=== PATIENT | male | born 1960 | race Caucasian/White ===

== ENCOUNTER 2017-12-08 17:04 | Observation (INO) | payer BC, SELFPAY ==
[2017-12-08 17:05] VITALS: BP 148/89; PULSE 98; RESP 18; TEMP 37.1; O2SAT 98; BMI 30.4
--- NOTE | 2017-12-08 17:17 | CT_ITS ---
STUDY: CT ABDOMEN AND PELVIS WITH CONTRAST REASON FOR EXAM: Male, 57 years old. Right-sided abdominal pain, colonoscopy 1 day ago RADIATION DOSAGE (If Supplied By Facility): CTDIvol = ( 13.93 ) mGy, DLP = ( 900.59 ) mGycm TECHNIQUE: Transaxial images were obtained from the dome of the diaphragm to the symphysis pubis without oral contrast. 100ML ml of Isovue 300 contrast was administered. Sagittal and coronal images were reconstructed. Individualized dose optimization techniques were used for this CT. COMPARISON: None. FINDINGS: The visualized lung bases are unremarkable. The visualized portions of the heart are within normal limits. Normal liver. Normal gallbladder and extrahepatic biliary system. Normal spleen. Normal pancreas. Normal bilateral adrenal glands. Normal right kidney. Normal left kidney. Normal visualized stomach. Normal small intestine. There is wall thickening of the cecal tip. There is a linear dense radiopaque foreign body of the cecum measuring 1.8 cm in length. There is mild colonic diverticulosis. There is no evidence of associated diverticulitis. The appendix is visualized and appears normal. Normal abdominal aorta. Normal inferior vena cava. Normal retroperitoneum. Normal urinary bladder. The prostate is mildly enlarged. There is a central prostatic calcification. There is a small umbilical hernia containing fat. There are diffuse degenerative changes of the thoracolumbar spine. There is moderate old compression deformity of the superior endplate of L3. CT/Abdomen/Pelvis WITH Contrast IMPRESSION: 1. There is wall thickening of the cecal tip. There is a linear dense intraluminal radiopaque foreign body of the cecum measuring approximately 1.8 cm in length. This structure is of unknown etiology or significance. 2. Mild colonic diverticulosis with no evidence of associated diverticulitis. 3. Enlarged prostate. 4. Small fat-containing umbilical hernia. 5. Diffuse degenerative changes of the thoracolumbar spine. Moderate old compression deformity of the superior endplate of L3. 6. There is no evidence of free intra-abdominal or intrapelvic air or fluid. Electronically Signed: Justin Chairez MD at 20:01 EDT , Service support ,
--- NOTE | 2017-12-08 17:27 | ED.DCSUM_ITS ---
- ER Visit Summary Date of Service: 12/08/17 Chief Complaint: Abdominal pain History of Present Illness: The patient is a 57 M who presents with right lower quadrant abdominal pain. Patient states that he had a screening colonoscopy yesterday morning with Dr. Lane. He states that there is a polyp on the right side of his colon that was clamped. He states he had a little bit of discomfort after the procedure. Pain gradually came on his described as a sharp cramping sensation. Last night was worse he spoke with Dr. Lane. It is progressively worsened today. He notes a normal bowel movement yesterday. He notes some anorexia today. He notes a subjective fever today. States it is worse with movement best with laying down. Physical Examination: Afebrile vital signs are stable Gen: Well-nourished well-developed Head: Normocephalic atraumatic Eyes: Perrl EOMI ENT: TMs clear no rhinorrhea moist mucous membranes Neck: Supple no lymphadenopathy no JVD nontender CVS: Regular rate rhythm no murmurs normal S1-S2 Respiratory: No distress clear to auscultation bilaterally chest nontender Abdomen: Soft patient has tenderness and guarding in the right lower quadrant without rebound ormal bowel sounds no masses Back: Nontender Extremity: Nontender no edema Skin: Normal color no rash Neuro: alert orientated ?3 CN II-XII intact normal strength sensation reflexes gait cerebellar Psych: Normal affect normal mood Test Results: White count is normal. CT abdomen pelvis demonstrates some thickening the right lower colon. There is a recent clip. Emergency Department Course and Treatment: Patient received morphine IV fluids and Zosyn. Spoke with Dr. Lane who is come to the emergency department evaluate the patient. He like to have the patient admitted for continued pain control. Impression: 1. Acute abdominal pain 2. Status post polypectomy This note was generated with [employer] dictation software. It may contain incorrect words, spelling, and punctuation that were not noted in review of the chart prior to signing ED Disposition - Plan for ED Patient: Disposition: [facility] Chief Complaint: Abd Pain
[2017-12-08 17:48] LABS: Absolute Lymphocyte Count 1.52 X10^3/ul (0.83-4.51); Absolute Neutrophil Count 6.4 X10^3/uL (2.0-7.7); Basophil# 0.01 X10^3/uL; Basophil% 0.1 % (0-1); Eosinophil# 0.05 X10^3/uL; Eosinophils% 0.6 % (0-5); Hematocrit 40.4 % (40-54); Hemoglobin 13.6 g/dl (13.0-16.5); Lymphocyte # 1.52 X10^3/ul (4.0); Lymphocyte % 17.4 % (19-41); Mean Corp Hgb Conc 33.7 g/gl (32-36); Mean Corpuscular Hgb 31.4 pg (27.0-32.0); Mean Corpuscular Volume 93.3 fL (80-94); Mean Platelet Vol. 9.6 fl (6.2-12.0); Monocyte# 0.76 X10^3/uL; Monocyte% 8.7 % (0-10); Neutrophil # 6.39 X10^3/uL (2.7-7.7); Neutrophil % 73.1 % (47-70); Platelet Count 160 K/mm3 (150-450); RBC Distribution Width CV 12.7 % (11.6-14.6); RBC Distribution Width SD 43.6 fl (35.1-43.9); Red Blood Count 4.33 M/mm3 (4.6-6.2); White Blood Count 8.7 K/mm3 (4.4-11.0)
[2017-12-08 17:52] LABS: POSITIVE COUNT NO; POSITIVE DIFFERENTIAL NO; POSITIVE MORPHOLOGY NO
[2017-12-08 17:55] LABS: AST(SGOT) 28 U/L (15-37); Alanine Aminotransfer ALT/SGPT 35 U/L (16-61); Albumin, Serum 3.7 g/dL (3.2-5.0); Alkaline Phosphatase 61 U/L (45-117); Anion Gap 8 (5-15); BUN 12 mg/dL (7-18); BUN/Creat Ratio 12.1 RATIO (10-20); Chloride 106 mmol/L (98-107); EST Glomerular Filtration Rate 82 mL/min (>60); Est Glom Filt Rate - Afr Amer 100 mL/min (>60); Estimated Creatinine Clearance 78.85 ml/min; Globulin 3.7 g/dL (2.2-4.2); Glucose 86 mg/dL (74-106); Potassium 3.8 mmol/L (3.5-5.1); Protein, Total 7.4 g/dL (6.4-8.2); Sodium Level 140 mmol/L (136-145)
--- NOTE | 2017-12-08 18:07 | ED.RN ---
DR EDWARDS NOTIFIED PT REQUESTING SOMETHING FOR PAIN
--- NOTE | 2017-12-08 19:29 | HP.PCM_ITS ---
History of Present Illness Date of Admission: 12/08/17 The patient is a 57 year old M POD# 1 s/p colonoscopy with cecal polypectomy with deep polypectomy with hemolock clip placed. The patient noted pain in the RLQ today. the patient notedno fever, shoulder pain or diffuse pain. The pain persisted and he presented to the [facility] ER. WBC and Hgb were normal. CT scan demonstrated no free air. with persistent pain, the patient was admitted for pain control, IV antibiotics and to assure the doesn't have a delayed signs of perforation Past Medical History Allergies No Known Allergies Allergy (Verified 12/08/17 17:07) Home Medications: Ambulatory Orders Medication Instructions Recorded Acetaminophen [Tylenol Tablet] 650 mg PO Q4H PRN PRN tablet 12/09/17 Oxycodone [Oxyir] 5 mg PO Q4H PRN PRN 7 Days #12 tab 12/09/17 Surgical History: no surgical history Smoking Status: Never smoker Review of Systems Constitutional: Denies: Chills, Fever, Weight Change HEENT: Denies: Head Aches, Sinus Congestion, Sinus Drainage Cardiovascular: Denies: Chest Pain, Palpitations Respiratory: Denies: Cough, Shortness of breath at rest, Sputum production Gastrointestinal: Reports: Abdominal Pain. Denies: Nausea, Vomiting Genitourinary: Denies: Dysuria Musculoskeletal: Denies: Joint Pain, Joint Tenderness Skin: Denies: Rash, Wounds Neurological: Denies: Numbness, Tingling, Focal weakness Psychiatric: Denies: Anxiety, Depression, Homicidal Ideations, Suicidal Ideations Hematologic/ Lymphatic: Denies: Easy Bruising, Easy Bleeding VTE Information - Inpt Only VTE Present on Admission: No VTE Pharm Prophylaxis ordered?: No - Physical Exam General: Alert, Oriented x3, Cooperative Lungs: Clear to auscultation, Normal air movement Cardiovascular: Regular rate, No murmurs Abdomen: Bowel Sounds Present, Soft, Tender - RLQ, no diffuse peritoneal signs Vital Signs Temp Pulse Resp BP Pulse Ox 98.7 F 98 18 148/89 H 98 12/08/17 17:05 12/08/17 17:05 12/08/17 17:05 12/08/17 17:05 12/08/17 17:05 Oxygen Delivery Method Room Air Weight: 90.9 kg Body Mass Index (BMI) 30.4 Laboratory Tests Past 24 Hrs 12/08/17 12/08/17 17:30 17:30 WBC 8.7 RBC 4.33 L Hgb 13.6 Hct 40.4 MCV 93.3 MCH 31.4 MCHC 33.7 RDW 12.7 RDW Differential 43.6 Plt Count 160 MPV 9.6 Immature Gran % (Auto) 0.100 Neut % (Auto) 73.1 H Lymph % (Auto) 17.4 L [place] % (Auto) 8.7 Eos % (Auto) 0.6 Baso % (Auto) 0.1 Absolute Neuts (auto) 6.4 Absolute Lymphs (auto) 1.52 Total Counted Not Reportable Sodium 140 Potassium 3.8 Chloride 106 Carbon Dioxide 26.0 Anion Gap 8 BUN 12 Creatinine 1.00 Estim Creat Clear Calc 78.85 Est GFR (MDRD) Af Amer 100 Est GFR (MDRD) Non-Af 82 BUN/Creatinine Ratio 12.1 Glucose 86 Calcium 8.0 L Total Bilirubin 1.00 AST 28 ALT 35 Alkaline Phosphatase 61 Total Protein 7.4 Albumin 3.7 Globulin 3.7 Albumin/Globulin Ratio 1.0 Assessment/Plan post polypectomy pain I discussed with the patient the finding of a CT scan. His laboratory results, which demonstrate no perforation. He does have swelling and inflammation at the base of the cecum on CT scan. The clip placement is in good location. I discussed with the patient that while unusual post polypectomy pain. This is not uncommon after a deeper polypectomy. I discussed the fact that clip placement should prevent perforation and that if the patient has bud perforation. A clip can be used to close that hole. I will admit for IV antibiotics and IV fluids. While the patient is requiring parenteral pain medication will be maintained nothing by mouth status. We will recheck a complete blood count in the morning. I anticipate his pain will improve. If so, we will restart clear liquids and if he is tolerating oral pain medicine.
[2017-12-08] MEDS: Morphine 4 MG/ML Syringe IV (19:41)
[2017-12-08] MEDS: 0.9% Normal Saline 1,000 ML 999 ML IV (19:41)
[2017-12-08] MEDS: Ondansetron 4 MG/2 ML Vial IV (19:41)
[2017-12-08 19:50] VITALS: BP 131/75; PULSE 93; RESP 18; RESP 20; TEMP 37.2; O2SAT 97
[2017-12-08 20:08] VITALS: BMI 29.7
[2017-12-08 20:14] VITALS: BMI 29.8
[2017-12-08 20:30] VITALS: BP 126/66; PULSE 92; RESP 16; TEMP 37.3; O2SAT 98
[2017-12-08] MEDS: Acetaminophen 325 MG Tablet 650 MG PO (22:01)
[2017-12-08] MEDS: HYDROmorphone 1 MG/ML Syringe IV (22:01)
[2017-12-08 22:40] VITALS: RESP 18
[2017-12-09] MEDS: HYDROmorphone 1 MG/ML Syringe IV ×3 (00:16→07:31)
[2017-12-09] MEDS: 0.9% NaCl Peripheral Flush Adult/Peds IV ×3 (00:17→07:31)
[2017-12-09 02:30] VITALS: BP 113/70; PULSE 77; RESP 18; TEMP 36.7; O2SAT 94
[2017-12-09] MEDS: Lactated Ringers 1,000 ML 100 ML IV (02:38)
[2017-12-09 05:58] LABS: Absolute Lymphocyte Count 1.44 X10^3/ul (0.83-4.51); Absolute Neutrophil Count 5.1 X10^3/uL (2.0-7.7); Basophil# 0.01 X10^3/uL; Basophil% 0.1 % (0-1); Eosinophil# 0.13 X10^3/uL; Eosinophils% 1.8 % (0-5); Hematocrit 38.3 % (40-54); Lymphocyte # 1.44 X10^3/ul (4.0); Lymphocyte % 19.8 % (19-41); Mean Corp Hgb Conc 33.9 g/gl (32-36); Mean Corpuscular Volume 94.3 fL (80-94); Mean Platelet Vol. 9.8 fl (6.2-12.0); Monocyte% 8.3 % (0-10); Neutrophil # 5.07 X10^3/uL (2.7-7.7); Neutrophil % 69.9 % (47-70); Platelet Count 136 K/mm3 (150-450); RBC Distribution Width CV 12.5 % (11.6-14.6); RBC Distribution Width SD 42.7 fl (35.1-43.9); Red Blood Count 4.06 M/mm3 (4.6-6.2); White Blood Count 7.3 K/mm3 (4.4-11.0)
[2017-12-09 06:02] LABS: POSITIVE COUNT NO; POSITIVE DIFFERENTIAL NO; POSITIVE MORPHOLOGY NO
[2017-12-09 08:18] VITALS: BP 119/71; PULSE 82; RESP 18; TEMP 36.5; O2SAT 95
[2017-12-09 08:19] LABS: Anion Gap 5 (5-15); BUN 12 mg/dL (7-18); BUN/Creat Ratio 11.8 RATIO (10-20); Chloride 106 mmol/L (98-107); Creatinine, Serum 1.02 mg/dL (0.70-1.30); EST Glomerular Filtration Rate 80 mL/min (>60); Est Glom Filt Rate - Afr Amer 97 mL/min (>60); Glucose 74 mg/dL (74-106); Potassium 4.2 mmol/L (3.5-5.1); Sodium Level 139 mmol/L (136-145)
[2017-12-09] MEDS: oxyCODONE 5 MG Tablet PO ×2 (10:13→14:35)
--- NOTE | 2017-12-09 10:13 | PCM.PN.SRG ---
Subjective: less pain this morning - Physical Exam General: Alert, Oriented x3, Cooperative Lungs: Clear to auscultation, Normal air movement Cardiovascular: Regular rate, No murmurs Abdomen: Bowel Sounds Present, Soft, Tender - much improved and minimally tender in the right lower quadrant, no peritoneal signs. Vital Signs Temp Pulse Resp BP Pulse Ox 97.7 F L 82 18 119/71 95 12/09/17 08:18 12/09/17 08:18 12/09/17 08:18 12/09/17 08:18 12/09/17 08:18 Oxygen Delivery Method Room Air Weight: 88.9 kg Body Mass Index (BMI) 29.7 Intake and Output for Last 24 Hours 12/07/17 12/08/17 12/09/17 23:59 23:59 23:59 Intake Total 1648 / 1648 Balance 1648 / 1648 Laboratory Tests Past 24 Hrs 12/09/17 12/09/17 05:31 05:31 WBC 7.3 RBC 4.06 L Hgb 13.0 Hct 38.3 L MCV 94.3 H MCH 32.0 MCHC 33.9 RDW 12.5 RDW Differential 42.7 Plt Count 136 L MPV 9.8 Immature Gran % (Auto) 0.100 Neut % (Auto) 69.9 Lymph % (Auto) 19.8 Mcintosh % (Auto) 8.3 Eos % (Auto) 1.8 Baso % (Auto) 0.1 Absolute Neuts (auto) 5.1 Absolute Lymphs (auto) 1.44 Total Counted Not Reportable Sodium 139 Potassium 4.2 Chloride 106 Carbon Dioxide 28.0 Anion Gap 5 BUN 12 Creatinine 1.02 Estim Creat Clear Calc 77.30 Est GFR (MDRD) Af Amer 97 Est GFR (MDRD) Non-Af 80 BUN/Creatinine Ratio 11.8 Glucose 74 Calcium 8.0 L Medical Necessity - Tobacco Use Smoking Status: Never smoker Assessment/Plan post polypectomy pain I discussed with the patient the finding of a CT scan. formal CT scan reading was consistent with my impression from last night. His laboratory results, which demonstrate no perforation. He does have swelling and inflammation at the base of the cecum on CT scan. The clip placement is in good location. I discussed with the patient that while unusual post polypectomy pain. This is not uncommon after a deeper polypectomy. I discussed the fact that clip placement should prevent perforation and that if the patient has bud perforation. A clip can be used to close that hole. WBC count today remains normal. Will continue IV antibiotics and IV fluids. if the patient's pain is improved to the point that oral analgesics are adequate for his pain, then we will restart clear liquids. he is tolerating clear liquids, then he can be discharged home later today on clear liquids for the next 4 days. He is to follow-up in my office .
[2017-12-09] MEDS: Piperacil/Tazobactam 3.375 GM/50 ML ML IV (10:14)
--- NOTE | 2017-12-09 10:15 | PCM.DC ---
You will use the following diet at home:: Clear liquid - for 5 days Call your doctor if you observe: Fever of 101 or Higher Allergies/Adverse Reactions: Allergies No Known Allergies Allergy (Verified 12/08/17 17:07) Medications to take at Discharge Acetaminophen [Tylenol Tablet] 650 mg PO Q4H PRN PRN tablet 12/09/17 Oxycodone [Oxyir] 5 mg PO Q4H PRN PRN 7 Days #12 tab 12/09/17 The following prescriptions were given: Oxycodone [Oxyir] 5 mg PO Q4H PRN PRN 7 Days #12 tab PRN Reason: Severe Pain (-06/19) Primary Care Physician: Adrian Valencia MD [Primary Care Provider] - Please Follow Up With: Pilo Melgoza MD When:
--- NOTE | 2017-12-09 10:19 | PCM.DC.SUM ---
Discharge Date and Diagnosis Date of Admission: 12/08/17 Date of Discharge: 12/09/17 Hospital Course and Treatment Summary of Care Provided: The patient is a 57 year old M with post polypectomy pain I discussed with the patient the finding of a CT scan of edema at the base of the cecum and a clip in place, but no signs of perforation or free air. formal CT scan reading was consistent with my impression from last night. His laboratory results, which demonstrate no perforation. He does have swelling and inflammation at the base of the cecum on CT scan. The clip placement is in good location. I discussed with the patient that while unusual post polypectomy pain. This is not uncommon after a deeper polypectomy. I discussed the fact that clip placement should prevent perforation and that if the patient has bud perforation. A clip can be used to close that hole. WBC count today remains normal. Will continue IV antibiotics and IV fluids. if the patient's pain is improved to the point that oral analgesics are adequate for his pain, then we will restart clear liquids. he is tolerating clear liquids, then he can be discharged home later today on clear liquids for the next 4 days. He is to follow-up in my office . Discharge Diet: - - clear liquids Call your doctor if you observe: Fever of 101 or Higher Home Medications: Medications to take at Discharge Acetaminophen [Tylenol Tablet] 650 mg PO Q4H PRN PRN tablet 12/09/17 Oxycodone [Oxyir] 5 mg PO Q4H PRN PRN 7 Days #12 tab 12/09/17 Following Prescrptions Were Given to Patient: Oxycodone [Oxyir] 5 mg PO Q4H PRN PRN 7 Days #12 tab PRN Reason: Severe Pain (6-06/19) Primary Care Physician: Adrian Valencia MD [Primary Care Provider] - Please Follow Up With: Pilo Melgoza MD When: Medical Necessity - Tobacco Use Smoking Status: Never smoker Meaningful Use Info Meaningful Use Diagnoses (Choose all that apply): None applicable
[2017-12-09 14:32] VITALS: BP 126/72; PULSE 81; RESP 18; TEMP 36.8; O2SAT 98
[2017-12-09 14:43] VITALS: BP 126/72; PULSE 81; RESP 18; TEMP 36.8; O2SAT 98
== END 2017-12-09 14:42 | disposition home or self-care (01) ==
LOC: ED 18:09 → MS2 19:47
PROVIDERS: Admitting Provider Surgery; Emergency Provider Emergency Medicine; Family Provider Family Medicine; PCP Family Medicine; Visit Provider Surgery
DX: G89.18 Other acute postprocedural pain (principal); R10.31 Right lower quadrant pain; R60.9 Edema, unspecified
CPT/HCPCS: 36415; 74177; 80048; 80053; 85025; 96361; 96365; 96375; 96376; 99218; 99285; J7120; Q9967; A4216; G0378; J2405

== ENCOUNTER 2019-05-30 10:26 | Emergency (ER) | payer BC, SELFPAY ==
[2019-05-30 10:27] VITALS: BP 117/65; PULSE 128; RESP 18; TEMP 36.5; O2SAT 98; BMI 25.8
--- NOTE | 2019-05-30 11:03 | ED.DCSUM_ITS ---
History of Present Illness Chief Complaint: Nausea/Vomiting Informant: Patient Onset: Days - 2 Narrative: Nausea vomiting diarrhea past 2 days. Started with nausea now dry heaving. No hematemesis. Last episodes 9 PM last night. Patient bladder cancer diagnosed in the summer status post 4 treatments are every 2 weeks last time was 4 days ago. Is followed by [place] [facility]. No fever, no abdominal pain. No recent antibiotics. Occasional lightheaded symptoms with activity. No chest pains, no shortness of breath, no cough. Denies any fevers. No chills or sweats. Prior similar symptoms: No Past Medical History - Allergies and Home Meds Allergies/Adverse Reactions: Allergies No Known Allergies Allergy (Verified 12/08/17 17:07) Primary Care Physician: Adrian Valencia MD [Primary Care Provider] - Surgical History: no surgical history Smoking Status: Never smoker Review of Systems General: Denies: Chills, Fever, Sweats Eyes: Denies: Visual changes - bilaterally, Diplopia ENT: Denies: Rhinorrhea, Sore throat Cardiovascular: Denies: Chest pain, Palpitations Respiratory: Denies: Dyspnea, Cough, Dyspnea on exertion Gastrointestinal: Reports: Nausea, Vomiting, Diarrhea. Denies: Abdominal pain, Melena, Hematochezia Genitourinary: Denies: Dysuria, Hematuria, Frequency Musculoskeletal: Denies: Back pain, Extremity Pain Skin: Denies: Rash, Wounds Neurological: Denies: Headache, Weakness, Numbness Physical Exam Vital Signs/Narrative: Vital Signs Temp Pulse Resp BP Pulse Ox 05/30/19 10:27 97.7 F L 128 H 18 117/65 98 Inital Vital Signs reviewed: Yes General: Well nourished, Well developed, No Acute Distress Head: Normocephalic, Atraumatic Eyes: Perrl, EOMI ENT: No rhinorrhea, Dry mucous membranes Neck: Supple, Nontender Cardiovascular: Regular rate, Regular rhythm, No murmurs, Tachycardia Respiratory: No distress, CTA bilaterally, Chest nontender Abdomen: Soft, Nontender, Nondistended, Normal bowel sounds Back: Nontender, Normal Inspection Extremities: Nontender, No edema Skin: Normal color, No rash Neurological: Alert, Oriented x3, Cranial nerves II-XII grossly intact, Normal Strength, Normal Sensation Psychological: Normal affect, Normal Mood Diagnostic/Tx/Re-eval Chest X-Ray - ED: 2 View, Read by ED Physician, No Infiltrates Clinical Impression(s) from Imaging Studies Chest X-Ray 05/30/19 13:08 IMPRESSION: Hyperinflation. No acute infiltrate is seen. Electronically Signed: Everette Rodriguez, at 14:02 EDT , Service support , Abnormal Lab Results 05/30/19 05/30/19 05/30/19 11:30 11:30 13:20 WBC 24.4 H RBC 3.24 L Hgb 10.4 L Hct 29.5 L MCV 91.0 MCH 32.1 H MCHC 35.3 RDW Std Deviation 45.0 H RDW Coeff of [place] 13.5 Plt Count 107 L MPV 9.9 Neut % (Auto) Not Reportable Absolute Neuts (auto) 22.1 H Absolute Lymphs (auto) 1.68 Total Counted 100 Neutrophils % (Manual) 88 H Band Neutrophils % 4 Lymphocytes % (Manual) 7 L Monocytes % (Manual) 1 Diff Path Review May foll Platelet Estimate MOD DEC RBC Morphology NORM C+C Sodium 133 L Potassium 3.6 Chloride 99 Carbon Dioxide 27.0 Anion Gap 7 BUN 31 H Creatinine 1.58 H Estim Creat Clear Calc 50.96 Est GFR (MDRD) Af Amer 58 L Est GFR (MDRD) Non-Af 48 L BUN/Creatinine Ratio 19.6 Glucose 109 H Calcium 8.8 Urine Color Yellow Urine Clarity Clear Urine pH 5.0 Ur Specific [place] 1.015 Urine Protein 30 H Urine Glucose (UA) Normal Urine Ketones 5 H Urine Occult Blood 25 H Urine Nitrite Negative Urine Bilirubin Negative Urine Urobilinogen Normal Ur Leukocyte Esterase 500 H Urine RBC 0-5 SEEN Urine WBC 10-25 SEEN Ur Squamous Epith Cells 0-5 SEEN Urine Bacteria 0 SEEN Urine Mucus 0 SEEN Patient tachycardic on arrival, however is nontoxic afebrile. Vomiting diarrhea and dry mucosal membranes concerns of dehydration. No cardiac history is given 2 L IV fluids with improving symptoms. Check labs and white count 24 however he is also status post Neulasta. He is not neutropenic. Slight ROMAN creatinine 1.58 he is status post 2 L of fluid. No vomiting or diarrhea in the ED. Due to the white count I also added chest x-ray which was negative. urine due to his bladder cancer notes leukocytes and white blood cells. Culture sent for the urine. He will be started on Keflex. He is feeling much better heart rate is 84 on reevaluation. Strict signs and symptoms discussed to return otherwise he will follow-up as an outpatient. Patient understands and agrees with plan. - Medical Decision Making Patient with no vomiting or diarrhea in the ED, therefore no additional studies for stools were sent. Patient meets sirs criteria, however he is not clinically septic. Patient does have Zofran at home. ED Disposition - Plan for ED Patient: Disposition: Home or Assisted Living Diagnosis: Nausea vomiting and diarrhea, Dehydration, Renal insufficiency, mild, UTI (urinary tract infection) Instructions: DIET, Vomiting or Diarrhea [6yr-Adult], Understanding Urinary Tract Infections (UTIs) Prescriptions: Cephalexin [Keflex] 500 mg PO Q12 #14 capsule Referrals: Adrian Valencia MD [Primary Care Provider] - Additional Instructions: Follow-up with your oncologist, continue oral fluids. Take antibiotics as prescribed. Return if any worsening symptoms.
[2019-05-30] MEDS: 0.9% Normal Saline 1,000 ML 1000 ML IV (11:33)
[2019-05-30] MEDS: Ondansetron 4 MG/2 ML Vial IV (11:33)
[2019-05-30 11:52] LABS: Anion Gap 7 (5-15); BUN 31 mg/dL (7-18); BUN/Creat Ratio 19.6 RATIO (10-20); Calcium,Total 8.8 mg/dL (8.5-10.1); Chloride 99 mmol/L (98-107); Creatinine, Serum 1.58 mg/dL (0.70-1.30); EST Glomerular Filtration Rate 48 mL/min (>60); Est Glom Filt Rate - Afr Amer 58 mL/min (>60); Estimated Creatinine Clearance 50.96 ml/min; Glucose 109 mg/dL (74-106); Hematocrit 29.5 % (40-54); Hemoglobin 10.4 g/dL (13.0-16.5); Mean Corp Hgb Conc 35.3 g/dL (32-36); Mean Corpuscular Hgb 32.1 pg (27.0-32.0); Mean Platelet Vol. 9.9 fl (6.2-12.0); POSITIVE COUNT YES; POSITIVE MORPHOLOGY YES; Platelet Count 107 K/mm3 (150-450); Potassium 3.6 mmol/L (3.5-5.1); RBC Distribution Width CV 13.5 % (11.6-14.6); Red Blood Count 3.24 M/mm3 (4.6-6.2); Sodium Level 133 mmol/L (136-145); White Blood Count 24.4 K/mm3 (4.4-11.0)
[2019-05-30 11:54] LABS: Differential Indicated MANUAL DIFF
[2019-05-30 12:39] LABS: Lymphocyte 7 % (19-41); Monocyte 1 % (0-10); Neutrophil-Band 4 % (0-5); Neutrophil-Segmented 88 % (47-70); Total Cells Counted 100 (MANUAL DIFF)
[2019-05-30 12:45] LABS: Absolute Lymphocyte Count 1.68 X10^3/uL (0.83-4.51); Absolute Neutrophil Count 22.1 X10^3/uL (2.0-7.7); Lymphocyte # 1.68 X10^3/ul (4.0); Neutrophil # 22.08 X10^3/uL (2.7-7.7)
[2019-05-30 12:46] LABS: Platelet Estimate MOD DEC (ADEQ); Red Cell Morphology NORM C+C NORMAL (NORM C&C)
--- NOTE | 2019-05-30 13:08 | RAD_ITS ---
STUDY: X-RAY CHEST REASON FOR EXAM: Male, 58 years old. Leukocytosis. Dehydration. TECHNIQUE: PA and lateral views of the chest. COMPARISON: None. FINDINGS: A right-sided PICC line catheter is in the proximal superior vena cava. Hyperinflation. Scattered calcified granulomas. There is no demonstrated pleural abnormality. Normal size heart. Normal mediastinum and steve. Normal visualized pulmonary arteries. Normal visualized aortic arch and descending thoracic aorta. There are degenerative changes of the visualized thoracic spine. Normal visualized ribs, clavicles, and shoulders. There is no demonstrated abnormality of the visualized soft tissue structures of the upper abdomen. RAD/Chest PA and Lateral IMPRESSION: Hyperinflation. No acute infiltrate is seen. Electronically Signed: Everette Rodriguez, at 14:02 EDT , Service support ,
[2019-05-30 13:29] LABS: Bacteria 0 SEEN /hpf (None Seen); Mucous, Urine 0 SEEN /hpf (<or=2+)
[2019-05-30 13:41] LABS: Color, Urine Yellow (Yellow); Glucose, Dipstick Normal (Normal); Ketone-Dipstick 5 mg/dl (Negative); Leukocyte Esterase-Dipstick 500 /ul (Negative); Nitrite-Dipstick Negative (Negative); Occult Blood-Urine 25 /ul (Negative); Protein-Dipstick 30 mg/dl (Negative); Specific Gravity, Urine 1.015 (1.002-1.030); Urine Bilirubin Dipstick Negative (Negative); Urine Clarity Clear (Clear); Urine Urobilinogen Normal (Normal)
[2019-05-30 13:45] LABS: Squamous Epithelial Cells - UA 0-5 SEEN /hpf (0-5)
[2019-05-30 13:48] LABS: Red Blood Cells-Urine 0-5 SEEN /hpf (0-5)
[2019-05-30 13:50] LABS: White Blood Cells 10-25 SEEN /hpf (0-5)
[2019-05-30] MEDS: Cephalexin 250 MG Capsule 500 MG PO (14:40)
[2019-05-30 14:48] VITALS: BP 130/67; PULSE 71; RESP 15; O2SAT 98
[2019-06-02 13:36] LABS: Pathologist Review Reviewed
== END 2019-05-30 14:49 | disposition home or self-care (01) ==
PROVIDERS: Emergency Provider Emergency Medicine; Family Provider Family Medicine; PCP Family Medicine
DX: R11.2 Nausea with vomiting, unspecified (principal); R19.7 Diarrhea, unspecified; E86.0 Dehydration; N28.9 Disorder of kidney and ureter, unspecified; N39.0 Urinary tract infection, site not specified; C67.9 Malignant neoplasm of bladder, unspecified
CPT/HCPCS: 71046; 80048; 81001; 85025; 87086; 96361; 96374; 99283; J7030; J2405

== ENCOUNTER 2020-06-29 10:21 | Emergency (ER) | payer BC, SELFPAY ==
[2020-06-29 10:23] VITALS: BP 151/89; PULSE 90; RESP 18; TEMP 36.4; O2SAT 99; BMI 30.4
[2020-06-29 11:03] LABS: Absolute Lymphocyte Count 0.29 X10^3/uL (0.83-4.51); Absolute Neutrophil Count 5.1 X10^3/uL (2.0-7.7); Eosinophils% 3.5 % (0-5); Hematocrit 42.1 % (40-54); Hemoglobin 14.3 g/dL (13.0-16.5); Lymphocyte # 0.29 X10^3/ul (4.0); Mean Corpuscular Volume 94.2 fL (80-94); Mean Platelet Vol. 9.5 fl (6.2-12.0); Monocyte# 0.21 X10^3/uL; Monocyte% 3.6 % (0-10); NRBC Flagged by Analyzer 0 % (0-5); Neutrophil # 5.06 X10^3/uL (2.7-7.7); Neutrophil % 87.7 % (47-70); POSITIVE DIFFERENTIAL YES; POSITIVE MORPHOLOGY YES; Platelet Count 145 K/mm3 (150-450); RBC Distribution Width CV 12.3 % (11.6-14.6); RBC Distribution Width SD 42.7 fl (35.1-43.9); Red Blood Count 4.47 M/mm3 (4.6-6.2); White Blood Count 5.8 K/mm3 (4.4-11.0)
[2020-06-29 11:04] LABS: Differential Indicated SCAN CRITERIA MET
[2020-06-29 11:15] LABS: Anion Gap 7 (5-15); BUN 21 mg/dL (7-18); BUN/Creat Ratio 14.5 RATIO (10-20); Calcium,Total 9.2 mg/dL (8.5-10.1); Chloride 105 mmol/L (98-107); Creatinine, Serum 1.45 mg/dL (0.70-1.30); EST Glomerular Filtration Rate 53 mL/min (>60); Est Glom Filt Rate - Afr Amer 64 mL/min (>60); Estimated Creatinine Clearance 53.07 ml/min; Glucose 140 mg/dL (74-106); Potassium 4.2 mmol/L (3.5-5.1); Sodium Level 139 mmol/L (136-145)
--- NOTE | 2020-06-29 11:37 | ED.DCSUM_ITS ---
History of Present Illness <Ej Millan - Last Filed: 06/29/20 18:04> Informant: Patient Narrative: Patient is a 59-year-old previously healthy male who presents to the emergency department for epigastric abdominal pain. He has been having associated nausea and vomiting with this. Denies any change in bowel habits. He has been having some sweats/chills but no fevers. The pain has occurred once a week over the past 4 weeks. It typically happens at nighttime. This episode has been going on since midnight last night. He has not tried taking anything for it. He currently describes the pain as a 10 out of 10 burning sensation. He does not know any aggravating or relieving factors. He does not feel that food affects his. He denies drinking alcohol to cause this. Only previous abdominal surgery was for bladder cancer. <Aldo Ash - Last Filed: 06/30/20 22:25> Chief Complaint: Abd Pain Past Medical History <Ej Millan - Last Filed: 06/29/20 18:04> Prior records reviewed: Yes Past Medical History: None Surgical History: - - Bladder cancer Smoking Status: Never smoker Alcohol: Rare Drugs: None <Aldo Ash - Last Filed: 06/30/20 22:25> - Allergies and Home Meds Allergies/Adverse Reactions: Allergies No Known Allergies Allergy (Verified 06/29/20 10:22) Primary Care Physician: Nino Allan MD [STAFF PHYSICIAN] - 3-5 Days Review of Systems All systems negative except as indicated General: Reports: Chills, Sweats. Denies: Fever Eyes: Denies: Visual changes - bilaterally, Diplopia ENT: Denies: Rhinorrhea, Sore throat Cardiovascular: Denies: Chest pain, Palpitations Respiratory: Denies: Dyspnea, Cough, Dyspnea on exertion Gastrointestinal: Reports: Abdominal pain, Nausea, Vomiting. Denies: Diarrhea, Melena, Hematochezia Genitourinary: Denies: Dysuria, Hematuria, Frequency Musculoskeletal: Denies: Back pain, Extremity Pain Skin: Denies: Rash, Wounds Neurological: Denies: Headache, Weakness, Numbness <Aldo Ash - Last Filed: 06/30/20 22:25> Physical Exam Vital Signs/Narrative: Vital Signs Pulse Resp BP Pulse Ox 06/29/20 15:29 82 18 124/73 H 96 <Ej Millan - Last Filed: 06/29/20 18:04> Vital Signs/Narrative: Vital Signs Temp Pulse Resp BP Pulse Ox 06/29/20 10:23 97.5 F L 90 18 151/89 H 99 Inital Vital Signs reviewed: Yes General: Well nourished, Well developed, No Acute Distress Head: Normocephalic, Atraumatic Eyes: Perrl, EOMI ENT: Moist mucous membranes, No rhinorrhea Neck: Supple, Nontender Cardiovascular: Regular rate, Regular rhythm, No murmurs Respiratory: No distress, CTA bilaterally, Chest nontender Abdomen: Soft, Nondistended, Normal bowel sounds, Tender - Epigastrium, - - No peritoneal signs.. Negative for: Guarding, Rebound tenderness, Rovsig's sign, Farris's sign Back: Nontender, Normal Inspection. Negative for: CVA tenderness Extremities: Nontender, No edema Skin: Normal color, No rash Neurological: Alert, Oriented x3, Cranial nerves II-XII grossly intact, Normal Strength, Normal Sensation Psychological: Normal affect, Normal Mood <Aldo Ash - Last Filed: 06/30/20 22:25> Diagnostic/Tx/Re-eval - Medical Decision Making Care of the patient was turned over to me pending ultrasound results. Ultrasound shows a 2 cm solitary gallstone with trace pericholecystic fluid. Gallbladder wall measures 4 mm. Common bile duct measures 4 mm. CBC was n ormal. Comprehensive metabolic profile shows a slightly elevated creatinine which is chronic. Liver function tests were normal. Urinalysis does not show any evidence of urinary tract infection. Patient was given a repeat dose of morphine here. Case was discussed with Dr. Allan. He agrees with outpatient follow-up and will follow up with the patient this week. Patient was given a prescription for Percocet. Patient was instructed to avoid fried foods, fatty foods, greasy foods. Patient was instructed to return if worse in any way. Patient understood and was agreeable with the plan. All questions were answered. <Ej Millan - Last Filed: 06/29/20 18:04> - Medical Decision Making Patient presents to the emergency department for epigastric abdominal pain with nausea/vomiting. Basic lab work being obtained and will treat symptomatically with a GI cocktail. The pain is reproducible. This does not seem cardiac in nature. Patient did not get any relief with GI cocktail so he was given a dose of morphine. The fact that the GI cocktail did not help we will move onto CT scan of the abdomen/pelvis. Creatinine was mildly elevated but this does appear to be chronic for him. CT of the abdomen did not show any evidence of pancreatitis but there was some fluid surrounding the gallbladder as well as mild gallbladder wall thickening. There is possibly some else of colitis as well. Will obtain ultrasound to better evaluate for cholecystitis. This was explained to the patient the plan. At this time patient signed out due to end of shift. The disposition will be pending based on ultrasound findings. His pain is well controlled after the dose of morphine. <Aldo Ash - Last Filed: 06/30/20 22:25> ED Disposition <Ej Millan - Last Filed: 06/29/20 18:04> <Aldo Ash - Last Filed: 06/30/20 22:25> - Plan for ED Patient: Disposition: Home or Assisted Living Diagnosis: Abdominal pain, Acute cholecystitis Instructions: ED Cholecystitis Confirmed Prescriptions: Oxycodone HCl/Acetaminophen [Percocet 5/325] 1 tab PO Q6H PRN PRN 3 Days #12 tab PRN Reason: Pain Prescription Printed Referrals: Nino Allan MD [STAFF PHYSICIAN] - 3-5 Days
[2020-06-29] MEDS: Mag Hydrox/Al Hydrox/Simeth 30 ML UDC PO (11:40)
[2020-06-29 12:08] LABS: AST(SGOT) 24 U/L (15-37); Alanine Aminotransfer ALT/SGPT 27 U/L (16-61); Albumin, Serum 3.9 g/dL (3.2-5.0); Alkaline Phosphatase 68 U/L (45-117); Bilirubin, Direct 0.22 mg/dL (0.00-0.30); Lipase 103 U/L (73-393); Protein, Total 7.9 g/dL (6.4-8.2)
[2020-06-29 12:37] VITALS: BP 137/79; PULSE 92; RESP 18; O2SAT 99
--- NOTE | 2020-06-29 13:05 | CT_ITS ---
STUDY: CT ABDOMEN AND PELVIS WITHOUT CONTRAST REASON FOR EXAM: Male, 59 years old. EPIGASTRIC PAIN SINCE LAST NIGHT, HISTORY OF BLADDER CANCER RADIATION DOSAGE (If Supplied By Facility): CTDIvol = ( 15.96 ) mGy, DLP = ( 1743.03 ) mGycm TECHNIQUE: Transaxial images were obtained from the dome of the diaphragm to the symphysis pubis without oral contrast, and without intravenous contrast. Sagittal and coronal images were reconstructed. Individualized dose optimization techniques were used for this CT. COMPARISON: Comparison is made with prior study dated 12/08/2017. FINDINGS: The visualized lung bases are unremarkable. The visualized portions of the heart are within normal limits. Normal liver. There is thickening of the gallbladder wall. There is minimal amount of pericholecystic fluid. Correlation with ultrasound is recommended. Normal spleen. Normal pancreas. Normal bilateral adrenal glands. Normal right kidney. Normal left kidney. There is a small hiatal hernia. Normal small intestine. The left hemicolon is not well distended. I cannot rule out mild degree of colitis. Clinical correlation is recommended. There are multiple colonic diverticula consistent with diverticulosis. The appendix is visualized and appears normal. Normal abdominal aorta. Normal inferior vena cava. Normal retroperitoneum. Normal urinary bladder. There is enlargement of the prostate gland. It measures 4.6 cm x 4.5 cm. This causes indentation at the bladder base. Central prostatic calcification. There is a small umbilical hernia containing fat. Straightening of the normal lumbar lordosis. Mild degree of compressive deformity of the superior endplate of the L3 vertebrae. This is unchanged. CT/Abdomen/Pelvis W IV Cont ONLY IMPRESSION: Possible colitis of the left hemicolon. Thickening of the gallbladder wall with small amount of pericholecystic fluid. Cholecystitis should be ruled out. Electronically Signed: Everette Rodriguez, at 14:27 EDT , Service support ,
[2020-06-29] MEDS: Morphine 4 MG/ML Syringe IV ×2 (13:09→17:57)
[2020-06-29 13:49] LABS: Mucous, Urine 0 SEEN /hpf (<or=2+); White Blood Cells 0 SEEN /hpf (0-5)
[2020-06-29 13:50] LABS: Color, Urine Yellow (Yellow); Glucose, Dipstick Normal (Normal); Ketone-Dipstick 5 mg/dl (Negative); Leukocyte Esterase-Dipstick 25 /ul (Negative); Nitrite-Dipstick Negative (Negative); Occult Blood-Urine 25 /ul (Negative); Protein-Dipstick Negative (Negative); Specific Gravity, Urine 1.005 (1.002-1.030); Urine Bilirubin Dipstick Negative (Negative); Urine Clarity Clear (Clear); Urine Urobilinogen Normal (Normal)
[2020-06-29 13:55] LABS: Bacteria RARE /hpf (None Seen); Red Blood Cells-Urine 0-5 SEEN /hpf (0-5); Squamous Epithelial Cells - UA 0-5 SEEN /hpf (0-5)
--- NOTE | 2020-06-29 14:59 | US_ITS ---
STUDY: ABDOMINAL ULTRASOUND - RIGHT UPPER QUADRANT REASON FOR VISIT: Male, 59 [address]-ABD PAIN TECHNIQUE: Ultrasound evaluation of the right upper quadrant was performed with real-time and static servin-scale imaging. TECHNICAL QUALITY: Adequate. COMPARISON: CT of abdomen and pelvis dated June 29, 2020 FINDINGS: Liver: The liver measures 16.1 cm. There is normal echogenicity of the liver. The bile ducts are within normal limits. There is hepatic color flow. The direction of portal flow is hepatopetal. There is no demonstrated mass lesion. Gallbladder: Normal distended gallbladder. The gallbladder wall measures 4 mm. There is trace pericholecystic fluid. A 2 cm solitary gallstone is present. Common Bile Duct (C.B.D.): The common bile duct measures 4 mm. Pancreas: Incomplete visualization of the head and tail of the pancreas. The visualized body is grossly unremarkable. Right Kidney: Normal size of the right kidney. The right kidney measures 9.7 x 4.8 x 5.3 cm. Normal renal cortex. The right cortex measures cm. There is no demonstrated renal mass or cyst. There is no right hydronephrosis. US/Abdomen Limited IMPRESSION: 1. Acute cholecystitis Electronically Signed: Bernardo Champagne MD at 17:49 EDT , Service support ,
[2020-06-29 15:29] VITALS: BP 124/73; PULSE 82; RESP 18; O2SAT 96
[2020-06-29 18:04] VITALS: BP 136/120; PULSE 81; O2SAT 99
[2020-06-29 18:28] VITALS: BP 136/82; PULSE 82; RESP 18
== END 2020-06-29 18:29 | disposition home or self-care (01) ==
PROVIDERS: Emergency Provider Emergency Medicine
DX: K80.00 Calculus of gallbladder with acute cholecystitis without obstruction (principal)
CPT/HCPCS: 74177; 76705; 80048; 80076; 81001; 83690; 84484; 85025; 96374; 96376; 99284; Q9967; A4216

== ENCOUNTER → 2020-07-02 10:00 | Outpatient (CLI) | payer BC, SELFPAY ==
[2020-06-30 13:45] VITALS: BMI 30.9
--- NOTE | 2020-07-02 10:05 | EKG12_ITS ---
Test Reason : PREOP Blood Pressure : / mmHG Vent. Rate : 085 BPM Atrial Rate : 085 BPM P-R Int : 148 ms QRS Dur : 082 ms QT Int : 346 ms P-R-T Axes : 057 077 062 degrees QTc Int : 411 ms Normal sinus rhythm Normal ECG Confirmed by CHASITY MCLAIN, EDILIA ([id number]), content editor CHRIS TIAN ([id number]) on 07/05/2020 12:54:10 PM Referred By: Nino Allan Confirmed By:EDILIA GASPAR MD
--- NOTE | 2020-07-08 08:00 | HP_ITS ---
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 Nino Allan MD) Smoking Status: Never smoker alcohol intake: current alcohol intake frequency: a few times a month substance use type: does not use HPI HPI HPI: RAMY REYNOSO, is a 59 M who presents to the office today for HPI HPI Surgical H&P: Yes HPI: RAMY REYNOSO, Patient is a 59-year-old previously healthy male who presents to the emergency department for epigastric abdominal pain. He has been having associated nausea and vomiting with this. Denies any change in bowel habits. He has been having some sweats/chills but no fevers. The pain has occurred once a week over the past 4 weeks. It typically happens at nighttime. This episode has been going on since midnight last night. He has not tried taking anything for it. He currently describes the pain as a 10 out of 10 burning sensation. He does not know any aggravating or relieving factors. He does not feel that food affects his. He denies drinking alcohol to cause this. Only previous abdominal surgery was for bladder cancer. Work-up in the emergency department showed normal liver function test normal white counts gallbladder ultrasound which showed some pericholecystic fluid and some slight thickening of the gallbladder wall itself. Patient states that he is no longer having this type of pain he has significantly improved from when he came to the emergency department. ROS General General: No weight change, appetite, fatigue, colon cancer, breast cancer or weakness HEENT HEENT: No difficulty swallowing, eye injury, eye surgery, swollen glands or hoarseness Endo Endocrine: No thyroid disease, diabetes mellitus, thyroid cancer, Hair loss, heat intolerance or cold intolerance Skin Skin: No rash or changing moles Breast Breast: No left breast lump, right breast lump, nipple discharge, breast pain, abnormal mammogram, abnormal US or breast enlargement Musc Musculoskeletal: No back problems, arthritis, rheumatoid arthritis, gout or joint pain Cardio Cardiovascular: No murmur, pacemaker, heart disease, atrial fibrillation, high blood pressure, heart attack, heart stent, palpitations, shortness of breat with exertion or chest pain Psych Psychiatric: No depression, anxiety or hearing voices Resp Respiratory: No shortness of breath, No sleep apnea, No cough, No COPD, No asthma, No emphysema, No wheezing Gastro Gastrointestinal: Yes abdominal pain, Yes nausea or vomiting, No diarrhea, No constipation, No blood in stool, No acid reflux, No hemorrhoids, No ulcers, Yes gallbladder problem, No black,tarry stools Johny Hematologic: No blood thinners, No blood disorders, No bleeding, No anemia, No blood clots Neuro Neurologic: No system reviewed and no additional complaints, except as docu, No as per HPI, No abnormal walking, No abnormal hearing, No abnormal movements, No abnormal speech, No behavioral changes, No burning sensations, No confusion, No seizure-like activity, No unsteadiness, No dizziness, No localized weakness, No frequent falls, No headache(s), No lack of coordination, No loss of vision, No memory loss, No numbness, No other visual disturbances, No radiating pain, No restless legs, No sensory deficit, No fainting, No tingling, No tremor(s), No weakness, No other Exam Const General: no acute distress, well developed, well hydrated Orientation: oriented to person, oriented to place, oriented to time [facility] Head: normocephalic, atraumatic Ears: external ears normal Mouth: moist mucous membranes Eyes Sclera: sclerae normal Pupils: normal by confrontation Neck Neck: no lymphadenopathy noted Neck mass: No Thyroid: thyroid normal, symmetrical Chest Chest palpation & inspection: normal inspection of the chest Breast Palpation: No nipple discharge Resp Effort & Inspection: normal respiratory effort Auscultation: clear to auscultation bilaterally Percussion: percussion normal Cardio Rate: regular rate Rhythm: regular rhythm Heart Sounds: no murmurs GI Palpation: soft, no hepatosplenomegaly, no masses, nontender Rectal Exam: other Other: Rectal exam deferred. Patient has absolutely no pain in the right upper quadrant to palpation. Extrem General: normal to inspection, no clubbing, cyanosis or edema Assessment & Plan Problems 1. Calculus of gallbladder with acute on chronic cholecystitis without obstruction K80.12 Plan My plan is to perform a laparoscopic cholecystectomy with intraoperative cholangiogram. The planned surgical procedure was discussed extensively with the patient. The risks, benefits, anticipated outcomes and possible complication were mentioned. My staff has also explained the procedure in understandable terms and the patient was given the option to take printed material concerning the planned procedure. The patient had the opportunity to ask questions concerning the planned procedure. The patient freely consents to the planned procedure. Coding Level of Care Code Off vis,new,level 4 Diagnoses Calculus of gallbladder with acute on chronic cholecystitis without obstruction K80.12 ??Cholelithiasis location: gallbladder ??Cholecystitis acuity: acute and chronic COVID (Procedure Consent) Procedure Criteria Procedure Criteria: Yes Elective The surgeon/proceduralist and patient have discussed in detail the risk of exposure to and/or potential harm posed by the COVID-19 virus with having a surgery/procedure at this time versus the risk of? delaying the surgery/procedure. It is not possible to know either the risk of delaying the surgery or procedure or chance of getting an infection with perfect accuracy, but a joint decision was made between the patient and the surgeon/proceduralist ?to proceed at this time with the scheduled surgery/procedure as indicated on the consent form.
== END ==
PROVIDERS: Anesthesiology; Referring Provider Surgery; Visit Provider Surgery
DX: Z01.810 Encounter for preprocedural cardiovascular examination (principal); Z20.828 Contact with and (suspected) exposure to other viral communicable diseases
CPT/HCPCS: 87635; 93005; C9803; U0003

== ENCOUNTER 2020-07-03 18:34 | Observation (INO) | payer BC, SELFPAY ==
[2020-06-30 13:45] VITALS: BMI 30.9
[2020-07-03 18:20] VITALS: BMI 29.7
[2020-07-03 18:27] VITALS: BMI 29.7
[2020-07-03 18:32] VITALS: BP 143/83; PULSE 75; RESP 20; TEMP 37.1; O2SAT 100
--- NOTE | 2020-07-03 18:36 | PCM.HP.STD ---
Problem List (1) Acute cholecystitis Status: Acute History of Present Illness Date of Admission: 07/03/20 The patient is a 59 year old M who presents with right upper quadrant and right abdominal pain as well as epigastric pain. The patient reports is been going on for 2 days. He was in the emergency room last week with symptoms that were similar and ultrasound showed thickening of the gallbladder wall and the patient followed up with Dr. Allan and was scheduled to have surgery next week. Patient reports he is currently having nausea and vomiting and the pain is radiating to the back. Past Medical History Medical History: Medical History (Last Reviewed 06/30/20 @ 14:[address] Nino Allan MD) Abdominal pain R10.9 Acute cholecystitis K81.0 History of bladder cancer Z85.51 Nausea & vomiting R11.2 Allergies No Known Allergies Allergy (Verified 07/01/20 11:04) Home Medications: Ambulatory Orders Medication Instructions Recorded Naproxen Sodium [Aleve] 220 mg PO PRN PRN 07/01/20 Surgical History: Surgical History (Last Reviewed 06/30/20 @ 14:[address] Nino Allan MD) history partial removal bladder Surgical History: - - Bladder cancer Smoking Status: Never smoker - *Family History Maternal Family History: Family History (Last Reviewed 06/30/20 @ 14:[address] Nino Allan MD) Father Colon cancer Cancer Mother Heart disease Review of Systems Constitutional: Denies: Anorexia, Fever HEENT: Denies: Difficulty Swallowing Cardiovascular: Denies: Chest Pain Respiratory: Denies: Cough, Shortness of Breath Gastrointestinal: Reports: Abdominal Pain, Nausea, Vomiting. Denies: Diarrhea, Hematemesis, Hematochezia Genitourinary: Denies: Dysuria Musculoskeletal: Denies: Joint Tenderness Skin: Denies: Jaundice Neurological: Denies: Balance problems Hematologic/ Lymphatic: Denies: Anemia VTE Information - Inpt Only VTE Present on Admission: No VTE Mechan Device Prophylaxis: SCD's - Physical Exam Vitals/I&O's: Vital Signs Temp Pulse Resp BP Pulse Ox 98.7 F 75 20 H 143/83 H 100 07/03/20 18:32 07/03/20 18:32 07/03/20 18:32 07/03/20 18:32 07/03/20 18:32 Oxygen Delivery Method Room Air Weight: 195 lb 5.273 oz Body Mass Index (BMI) 29.7 General: Alert, Oriented x3 Neck: No JVD Lungs: Normal air movement Cardiovascular: Regular rate, Regular Rhythm Abdomen: Soft, Non-Distended, Tender - Tender in the upper abdomen especially on the right side, no guarding or rebound Extremities: No clubbing Musculoskeletal: No Muscle Wasting Neurological: Cranial nerves II-XII grossly intact Psych/Mental Status: Normal Affect Current Medications Sodium Chloride () 250 mls @ 15 mls/hr IV .[id number] PRN PRN Reason: Saline Flush Sodium Chloride () 250 mls @ 15 mls/hr IV .[id number] PRN PRN Reason: Additional IVPB Infusion Sodium Chloride () 1,000 mls @ 125 mls/hr IV .Q8H DEEP Pantoprazole Sodium 40 mg/ (Sodium Chloride) 110 mls @ 330 mls/hr IV Q24 DEEP Piperacillin Sod/Tazobactam (Sod 3.375 gm/ Sodium Chloride) 50 mls @ 12.5 mls/hr IV Q8 DEEP Morphine Sulfate (Morphine 2 Mg/Ml Syringe) 2 - 4 mg IV Q2H PRN PRN PRN Reason: Pain Score 4-10 Ondansetron HCl (Ondansetron 4 Mg/2 Ml Vial) 4 mg IV Q6H PRN PRN PRN Reason: NAUSEA Sodium Chloride (0.9% Saline Lock 10 Ml Syringe) 10 - 40 ml IV UD PRN PRN Reason: SALINE FLUSH Assessment/Plan All Active Problems (Last Reviewed 06/30/20 @ 14:[address] Nino Allan MD) Acute cholecystitis (Acute) 59-year-old male with acute cholecystitis 1. Patient had an ultrasound and CT scan last week that showed pericholecystic fluid with thickening of the wall the gallbladder large gallstone. Patient was scheduled for surgery next week. The patient reports extreme pain since yesterday which is a 10 out of 10. The patient is also having nausea and vomiting. I am ordering labs and plan for laparoscopic cholecystectomy with cholangiogram tomorrow. I discussed possible open procedure as well as possible partial cholecystectomy if his gallbladder is inflamed enough. 2. I discussed the procedure in detail with the patient. I discussed the risks, benefits, and alternatives of the procedure. I discussed the risks including but not limited to bleeding, infection, injury to surrounding organs such as the liver, bile duct, bowels. I did discuss the possibility of having to convert to an open procedure as well as the possibility that if any injuries occurred this may necessitate further surgery at a tertiary care center. 3. I will order antibiotics and labs for the patient as well as IV fluids and keep the patient n.p.o. overnight. Gm Wheeler MD Pager: [facility] [address] [place] [address] [address] [place] [phone] Office:
[2020-07-03] MEDS: 0.9% Saline Lock 10 ML Syringe IV ×4 (18:54→21:23)
[2020-07-03] MEDS: 0.9% Normal Saline 1,000 ML 125 ML IV (18:55)
[2020-07-03] MEDS: Morphine 2 MG/ML Syringe IV ×2 (18:57→19:25)
[2020-07-03] MEDS: Ondansetron 4 MG/2 ML Vial IV (19:04)
[2020-07-03 19:10] LABS: Absolute Lymphocyte Count 0.92 X10^3/uL (0.83-4.51); Absolute Neutrophil Count 3.9 X10^3/uL (2.0-7.7); Basophil# 0.02 X10^3/uL; Basophil% 0.4 % (0-1); Eosinophil# 0.12 X10^3/uL; Eosinophils% 2.1 % (0-5); Hematocrit 42.3 % (40-54); Hemoglobin 14.7 g/dL (13.0-16.5); Lymphocyte # 0.92 X10^3/ul (4.0); Lymphocyte % 16.1 % (19-41); Mean Corp Hgb Conc 34.8 g/dL (32-36); Mean Corpuscular Volume 92.2 fL (80-94); Monocyte% 12.3 % (0-10); NRBC Flagged by Analyzer 0 % (0-5); Neutrophil # 3.93 X10^3/uL (2.7-7.7); Neutrophil % 68.9 % (47-70); Platelet Count 165 K/mm3 (150-450); RBC Distribution Width CV 11.8 % (11.6-14.6); RBC Distribution Width SD 39.6 fl (35.1-43.9); Red Blood Count 4.59 M/mm3 (4.6-6.2); White Blood Count 5.7 K/mm3 (4.4-11.0)
[2020-07-03 19:30] LABS: ALB/GLOB Ratio 0.8 RATIO (0.9-2.4); AST(SGOT) 45 U/L (15-37); Alanine Aminotransfer ALT/SGPT 32 U/L (16-61); Albumin, Serum 3.7 g/dL (3.2-5.0); Alkaline Phosphatase 61 U/L (45-117); Anion Gap 8 (5-15); BUN 16 mg/dL (7-18); BUN/Creat Ratio 11.6 RATIO (10-20); Chloride 102 mmol/L (98-107); Creatinine, Serum 1.38 mg/dL (0.70-1.30); EST Glomerular Filtration Rate 56 mL/min (>60); Est Glom Filt Rate - Afr Amer 68 mL/min (>60); Estimated Creatinine Clearance 55.76 ml/min; Globulin 4.4 g/dL (2.2-4.2); Glucose 90 mg/dL (74-106); Lipase 54 U/L (73-393); Protein, Total 8.1 g/dL (6.4-8.2); Sodium Level 134 mmol/L (136-145)
[2020-07-03] MEDS: Morphine 4 MG/ML Syringe IV (21:25)
[2020-07-03 23:10] VITALS: BP 106/80; PULSE 82; RESP 18; TEMP 36.9; O2SAT 98
[2020-07-03] MEDS: HYDROmorphone 1 MG/ML Syringe IV (23:14)
[2020-07-04] VITALS (9 sets, daily range): BP systolic 116–141; BP diastolic 66–83; PULSE 77–93; RESP 14–18; TEMP 36.6–36.9; O2SAT 96–100; BMI 29.7
[2020-07-04] MEDS: HYDROmorphone 1 MG/ML Syringe IV ×3 (02:02→08:37)
[2020-07-04] MEDS: 0.9% Normal Saline 1,000 ML 125 ML IV ×2 (06:01→15:01)
[2020-07-04 06:09] LABS: Absolute Lymphocyte Count 0.97 X10^3/uL (0.83-4.51); Absolute Neutrophil Count 4.4 X10^3/uL (2.0-7.7); Basophil# 0.01 X10^3/uL; Basophil% 0.2 % (0-1); Eosinophil# 0.02 X10^3/uL; Eosinophils% 0.3 % (0-5); Hematocrit 40.7 % (40-54); Hemoglobin 13.7 g/dL (13.0-16.5); Lymphocyte # 0.97 X10^3/ul (4.0); Lymphocyte % 16.2 % (19-41); Mean Corp Hgb Conc 33.7 g/dL (32-36); Mean Corpuscular Hgb 31.8 pg (27.0-32.0); Mean Corpuscular Volume 94.4 fL (80-94); Mean Platelet Vol. 9.7 fl (6.2-12.0); Monocyte# 0.59 X10^3/uL; Monocyte% 9.9 % (0-10); NRBC Flagged by Analyzer 0 % (0-5); Neutrophil # 4.38 X10^3/uL (2.7-7.7); Neutrophil % 73.2 % (47-70); Platelet Count 141 K/mm3 (150-450); RBC Distribution Width CV 11.9 % (11.6-14.6); RBC Distribution Width SD 41.6 fl (35.1-43.9); Red Blood Count 4.31 M/mm3 (4.6-6.2)
[2020-07-04 06:39] LABS: ALB/GLOB Ratio 0.8 RATIO (0.9-2.4); AST(SGOT) 32 U/L (15-37); Alanine Aminotransfer ALT/SGPT 30 U/L (16-61); Albumin, Serum 3.4 g/dL (3.2-5.0); Alkaline Phosphatase 58 U/L (45-117); Anion Gap 7 (5-15); BUN 15 mg/dL (7-18); BUN/Creat Ratio 11.2 RATIO (10-20); Calcium,Total 8.6 mg/dL (8.5-10.1); Chloride 104 mmol/L (98-107); Creatinine, Serum 1.34 mg/dL (0.70-1.30); EST Glomerular Filtration Rate 58 mL/min (>60); Est Glom Filt Rate - Afr Amer 70 mL/min (>60); Estimated Creatinine Clearance 57.43 ml/min; Glucose 93 mg/dL (74-106); Potassium 4.3 mmol/L (3.5-5.1); Protein, Total 7.4 g/dL (6.4-8.2); Sodium Level 137 mmol/L (136-145)
--- NOTE | 2020-07-04 07:03 | PN.SURG_ITS ---
Patient Problems: Active and Suspected Problems (Last Reviewed 06/30/20 @ 14:[address] Nino Allan MD) Acute cholecystitis (Acute) Subjective: Patient reports he did have some nausea and 1 episode of vomiting overnight. His pain is a 5 out of 10 this morning. - Physical Exam Vitals/I&O's: Vital Signs Temp Pulse Resp BP Pulse Ox 98.5 F 77 16 116/66 99 07/04/20 04:55 07/04/20 04:55 07/04/20 04:55 07/04/20 04:55 07/04/20 04:55 Oxygen Delivery Method Room Air Weight: 195 lb 5.273 oz Body Mass Index (BMI) 29.7 Intake and Output for Last 24 Hours 07/02/20 07/03/20 07/04/20 23:59 23:59 23:59 Intake Total 285 / 285 787.50 / 787.50 Balance 285 / 285 787.50 / 787.50 General: Alert, Oriented x3 Neck: No JVD Cardiovascular: Regular rate, Regular Rhythm Abdomen: Soft, Non-Distended, Tender - Tender in the right upper quadrant Laboratory Results 07/03/20 18:55: WBC 5.7, RBC 4.59 L, Hgb 14.7, Hct 42.3, MCV 92.2, MCH 32.0, MCHC 34.8, RDW Std Deviation 39.6, RDW Coeff of Carroll 11.8, Plt Count 165, MPV 10.0, Immature Gran % (Auto) 0.200, Neut % (Auto) 68.9, Lymph % (Auto) 16.1 L, [place] % (Auto) 12.3 H, Eos % (Auto) 2.1, Baso % (Auto) 0.4, Absolute Neuts (auto) 3.9, Absolute Lymphs (auto) 0.92, Nucleated RBC % 0 07/03/20 18:55: Sodium 134 L, Potassium 5.0, Chloride 102, Carbon Dioxide 24.0, Anion Gap 8, BUN 16, Creatinine 1.38 H, Estim Creat Clear Calc 55.76, Est GFR (MDRD) Af Amer 68, Est GFR (MDRD) Non-Af 56 L, BUN/Creatinine Ratio 11.6, Glucose 90, Calcium 9.0, Total Bilirubin 0.80, AST 45 H, ALT 32, Alkaline Phosphatase 61, Total Protein 8.1, Albumin 3.7, Globulin 4.4 H, Albumin/Globulin Ratio 0.8 L, Lipase 54 L 07/04/20 04:40: WBC 6.0, RBC 4.31 L, Hgb 13.7, Hct 40.7, MCV 94.4 H, MCH 31.8, MCHC 33.7, RDW Std Deviation 41.6, RDW Coeff of Carroll 11.9, Plt Count 141 L, MPV 9.7, Immature Gran % (Auto) 0.200, Neut % (Auto) 73.2 H, Lymph % (Auto) 16.2 L, [place] % (Auto) 9.9, Eos % (Auto) 0.3, Baso % (Auto) 0.2, Absolute Neuts (auto) 4.4, Absolute Lymphs (auto) 0.97, Nucleated RBC % 0 07/04/20 04:40: Sodium 137, Potassium 4.3, Chloride 104, Carbon Dioxide 26.0, Anion Gap 7, BUN 15, Creatinine 1.34 H, Estim Creat Clear Calc 57.43, Est GFR (MDRD) Af Amer 70, Est GFR (MDRD) Non-Af 58 L, BUN/Creatinine Ratio 11.2, Glucose 93, Calcium 8.6, Total Bilirubin 0.80, AST 32, ALT 30, Alkaline Phosphatase 58, Total Protein 7.4, Albumin 3.4, Globulin 4.0, Albumin/Globulin Ratio 0.8 L Current Medications Hydromorphone HCl (Hydromorphone 1 Mg/Ml Syringe) 1 mg IV Q2H PRN PRN PRN Reason: Pain Score 4-10 Last Admin: 07/04/20 04:51 Dose: 1 mg Documented by: Sodium Chloride () 250 mls @ 15 mls/hr IV .[id number] PRN PRN Reason: Saline Flush Sodium Chloride () 250 mls @ 15 mls/hr IV .[id number] PRN PRN Reason: Additional IVPB Infusion Sodium Chloride () 1,000 mls @ 125 mls/hr IV .Q8H DEEP Last Infusion: 07/04/20 06:02 Dose: 0 mls/hr Documented by: Pantoprazole Sodium 40 mg/ (Sodium Chloride) 110 mls @ 330 mls/hr IV Q24 DEEP Last Infusion: 07/03/20 19:57 Dose: Infused Documented by: Piperacillin Sod/Tazobactam (Sod 3.375 gm/ Sodium Chloride) 50 mls @ 12.5 mls/hr IV Q8 DEEP Last Admin: 07/04/20 06:01 Dose: 12.5 mls/hr Documented by: Ondansetron HCl (Ondansetron 4 Mg/2 Ml Vial) 4 mg IV Q6H PRN PRN PRN Reason: NAUSEA Last Admin: 07/03/20 19:04 Dose: 4 mg Documented by: Sodium Chloride (0.9% Saline Lock 10 Ml Syringe) 10 - 40 ml IV UD PRN PRN Reason: SALINE FLUSH Last Admin: 07/03/20 21:23 Dose: 10 ml Documented by: Medical Necessity - Tobacco Use Smoking Status: Never smoker Assessment/Plan All Active Problems (Last Reviewed 06/30/20 @ 14:[address] Nino Allan MD) Acute cholecystitis (Acute) 59-year-old male with acute cholecystitis 1. Patient had to have pain medication increased overnight. Patient is still on antibiotics with a normal white count this morning. Plan for laparoscopic cholecystectomy this morning. Gm Wheeler MD Pager: [facility] [address] [place] [address], [address] [place] [address] Office:
--- NOTE | 2020-07-04 07:30 | RAD_ITS ---
CLINICAL HISTORY: Male, 59 years old. Abdominal pain, acute cholecystitis PROCEDURE: CHOLANGIOGRAM - intraoperative FLUOROSCOPY TIME (if supplied): (36 seconds) minutes/seconds TECHNIQUE: (All elements of maximal sterile barrier technique followed, including US elements as applicable) 36 seconds of fluoroscopy of the abdomen was utilized and operating room during an intraoperative cholangiogram and 3 cine clips are submitted for interpretation. FINDINGS: A cannula seen in the cystic duct remnant. The opacified common bile duct demonstrates a possible meniscus sign distally worrisome for stone near the ampulla. A third similarly demonstrates normal emptying of contrast through the ampulla into the duodenum. RAD/Cholangiogram/ O R,Initial IMPRESSION: Suspect distal common bile duct stone near the ampulla with probable treatment during procedure.. Electronically Signed: Pilo Glover MD at 11:39 EDT Tel , Service support ,
[2020-07-04] MEDS: 0.9% Saline Lock 10 ML Syringe IV (08:37)
--- NOTE | 2020-07-04 11:00 | GALL_PTH ---
PATIENT: RAMY REYNOSO LOC: MS3 U#:[id number] AGE/SX: 59/M ROOM: MS306 RE07/03/[address]: Dr. Gm Wheeler MD : 1960 BED: 1 DIS: 07/04/2020 SPEC #: [id number] RECD: 07/05/20 07:19 STATUS: LEVI BO #: [id number] JACK: 07/04/20 11:[address]: Gm Wheeler DEPT: SURGICAL PATHOLOGY RECD BY: Luis Fontaine ENTERED: 07/05/20 09:12 SP TYPE: LUCILLE SALES DR: No Primary Care Phys Tissues: Gallbladder, NOS Procedures: Surgery Specimen Level III HEADER OPERATION: Laparoscopic cholecystectomy with IOC PRE-OP DIAGNOSIS: Acute cholecystitis TISSUE SUBMITTED: Gallbladder MICROSCOPIC DIAGNOSIS Gallbladder, cholecystectomy: Acute and chronic hemorrhagic and ulcerated cholecystitis and cholelithiasis. SJ:kylah 07/06/20 MICROSCOPIC DESCRIPTION Slides are reviewed. GROSS DESCRIPTION Received is one container labeled with the patient's name and designated gallbladder. The specimen consists of a gallbladder measuring 8.5 cm in length and up to 4 cm in diameter. The external surface is pink-frankel, smooth and glistening for the most part. Focally it is granular, hemorrhagic and contains cautery artifact. The gallbladder contains one ovoid, light yellow to brown stone measuring 3.5 x 2.5 x 2 cm. The mucosa is congested and hemorrhagic. The gallbladder wall measures up to 0.5 cm in thickness. Critical Care Unit Manager sections from the gallbladder and the cystic duct are submitted in one cassette. / SJ:kylah 07/05/20 TC:2 CPT: 80372
[2020-07-04] MEDS: Bupiv/Epi 0.25% 30 ML Vial (11:32)
--- NOTE | 2020-07-04 11:38 | OP.PCM_ITS ---
Problem List (1) Acute cholecystitis Status: Acute Report of Operation Date of Procedure: 07/04/20 Pre-Operative Diagnosis: Acute cholecystitis Post-Operative Diagnosis: Same Surgery/Procedure Performed:: Laparoscopic cholecystectomy with cholangiogram Description of Surgical Findings:: Inflamed gallbladder with large stone. Normal IOC. Specimen's removed: Gallbladder and contents Description of Procedure: After obtaining informed consent patient was brought back to the operating room. General anesthesia was induced. The abdomen was prepped and draped in usual sterile fashion. A small midline incision was made superior to the umbilicus and deepened to the level of fascia. The fascia was elevated and incised. Next the peritoneum was elevated and incised in the same fashion. Finger sweep was performed and the Beckham trocar was placed into the abdomen. The balloon was inflated. The abdomen was inflated to 15 mmHg. Next a camera was introduced into the abdomen and the abdomen was inspected. Next under direct visualization three 5-mm ports were placed one subxiphoid and 2 subcostal. Next the gallbladder was elevated and retracted toward the right shoulder. The peritoneum was stripped from the gallbladder. The infundibulum was located and retracted laterally. The gallbladder was very inflamed. Next the triangle of Calot was dissected and the cystic duct and cystic artery were identified. Cholangiograms were performed. The Pandya clamp was used to clamp across the infundibulum and the catheter needle was inserted into the gallbladder. Under fluoroscopy contrast was instilled into the gallbladder and the common duct, cystic duct as well as proximal hepatic ducts were identified. There was good filling of the duodenum. There were no filling defects noted in the common bile duct. The clamp was removed as well as the needle and the infundibulum was grasped once more. Three hemolock clips were placed across the cystic duct. The cystic duct was then divided leaving 2 clips on the stump. The cystic artery was clipped and divided in the same fashion. The hook cautery was then used to take the gallbladder off of the gallbladder bed. Hemostasis was obtained. Gallbladder fossa was irrigated and no active bleeding or bile leakage was noted. Next the camera was introduced in the subxiphoid port. An Endopouch bag was placed through the umbilical port and the gallbladder was placed into it. The gallbladder was then removed through the umbilical incision. The camera was then reinserted through the umbilical port. The gallbladder fossa was inspected once more and noted to be hemostatic with no leaking bile. The abdomen was suctioned dry. The 5 mm ports were removed under direct visualization. The umbilical port was then removed and the air was removed from the abdomen. Next using an 0 Vicryl suture the umbilical fascia was closed in a [id number] fashion. The umbilical port site was irrigated local anesthetic was administered to all the incisions. All the incisions were closed with interrupted subcuticular 4-0 Monocryl sutures followed by Steri- Strips and dressings. The patient was awoken and taken to PACU in stable condition. - Admit VTE Documentation VTE Mechan Device Prophylaxis: SCD's
[2020-07-04] MEDS: BENZOCAINE/MENTHOL 1 LOZENGE MUCOUS MEM (14:31)
--- NOTE | 2020-07-04 15:51 | DCINST_ITS ---
Discharge Diet: Light diet - advance as tolerated Discharge Activity: Return to Normal Activity, May Not Drive - for 2-3 days or while taking narcotic pain medicataions., - - Do not drive, work heavy equipment or sign legal documents for 24 hours. May shower in (days): 1 - with the bandage in place. Lifting Restrictions: 20 lbs for 2 weeks Additional Activity Instructions:: Pain medication may cause nausea. You should typically eat light foods as you take your pain medications. Pain medication may also cause constipation. If this is a problem for you, please discuss with your doctor. Call your doctor if your incision/area has: Continuous Slow Oozing, Sudden Increased Bleeding, Increased Pain/ Swelling, Increased Redness, Foul Smelling Discharge, Fever of 101 or Higher Call your doctor if you observe: Fever of 101 or Higher Suture Line Care: Avoid Pulling/Pushing, Avoid Pinching/Bending Additional Dressing/Incision Instructions:: Leave operative bandaids on for 2 days. When you remove dressing, leave Steri-Strips on until your follow-up appointment, or until the Steri-Strips fall off on their own. Allergies/Adverse Reactions: Allergies No Known Allergies Allergy (Verified 07/01/20 11:04) Medications to take at Discharge Naproxen Sodium [Aleve] 220 mg PO PRN PRN 07/01/20 Acetaminophen [Tylenol Tablet] 650 mg PO Q4H PRN PRN tablet 07/04/20 Oxycodone [Oxyir] 5 - 10 mg PO Q4H PRN PRN 5 Days #30 tablet 07/04/20 The following prescriptions were given: Oxycodone [Oxyir] 5 - 10 mg PO Q4H PRN PRN 5 Days #30 tablet PRN Reason: Pain Score 4-10 Transmission [facility] Test Results: Test results from this visit will be discussed in further detail at your follow- up appointment, if applicable. Please Follow Up With: Gm Wheeler MD When: Call tomorrow to make 2 week follow up appt [phone]
== END 2020-07-04 17:57 | disposition home or self-care (01) ==
LOC: MS3 07-05 15:33
PROVIDERS: Admitting Provider Surgery; Visit Provider Surgery
PROC: (CPT 47610; principal; 2020-07-04 11:00)
DX: K80.12 Calculus of gallbladder with acute and chronic cholecystitis without obstruction (principal); Z85.51 Personal history of malignant neoplasm of bladder
CPT/HCPCS: 00790; 47563; 36415; 74300; 76000; 80053; 83690; 85025; 88304; 96361; 96365; 96366; 96368; 96375; 96376; 99218; J7030; A4216; G0378; J1610; J2405

== ENCOUNTER → 2022-04-21 | Outpatient (CLI) | payer BC, SELFPAY ==
[2022-04-21 10:51] LABS: Vitamin D,25 Hydroxy 41.8 ng/mL
[2022-04-21 10:57] LABS: Anion Gap 6 (5-15); BUN 19 mg/dL (7-18); BUN/Creat Ratio 15.4 RATIO (10-20); Calcium,Total 9.8 mg/dL (8.5-10.1); Chloride 104 mmol/L (98-107); Cholesterol 161 mg/dL (200); Creatinine, Serum 1.23 mg/dL (0.70-1.30); EST Glomerular Filtration Rate 63 mL/min (>60); Est Glom Filt Rate - Afr Amer 77 mL/min (>60); Glucose 109 mg/dL (74-106); High Density Lipoprotein 66 mg/dL; PSA,Total - Annual Screen 2.93 ng/mL (0.00-4.00); Potassium 4.3 mmol/L (3.5-5.1); Sodium Level 137 mmol/L (136-145); Triglycerides 69 mg/dL; Very Low Density Lipoprotein 14 mg/dL (5-40)
== END | disposition home or self-care (01) ==
LOC: MFPLAB 09:20
PROVIDERS: PCP Family Medicine; Referring Provider Family Medicine; Visit Provider Family Medicine
DX: Z00.00 Encounter for general adult medical examination without abnormal findings (principal); Z12.5 Encounter for screening for malignant neoplasm of prostate
CPT/HCPCS: 36415; 80048; 80061; 82306; 84153; G0103

== ENCOUNTER → 2023-10-05 | Outpatient (CLI) | payer BC, SELFPAY ==
--- OUTSIDE RECORDS SUMMARY | 2023-10-05 09:28 | XMS RPT_ITS | CCD ---
Author Name Unknown Address [address] [place] [address] Organization [facility] Care Team Providers Care Luggage Attendant Name Role Phone Erik MCLAIN, Adrian Singh Primary Care Provider Josh Mclean MD Primary Care Provider 1( [phone] JOSH MCLEAN Primary Care Unavailable Medications Current Medications Medication Drug Class(es) Dates Sig (Normalized) Sig (Original) iv contrast (will be provided with radiology test) (6 sources) Start: 08-17-2022 End: 08-18-2022 iv contrast (will be provided with radiology test) CT Urogram WO/W Inject, intravenously, once for 1 dose.No IV access, insert saline lock prior to the beginning of sedation, infusion, injection of imaging exam. Discontinue saline lock post exam. If Pt. has a central line or IVAD, may access for administration according to line specific nursing protocol. Once exam is complete flush line and de-access according to line specific nursing protocol in the CT contrast administration guidelines link. 1 Each 0 08/17/2022 08/18/2022 Active Completed/Discontinued Medications Medication Drug Class(es) Dates Sig (Normalized) Sig (Original) cephalexin 500 mg oral capsule (1 source) Cephalosporin Antibacterial Start: 08-17-2022 End: 08-17-2022 cephALEXin 500 mg cap(s) (KEFLEX) Problems Active Problems Problem Classification Problem Date Documented Da te Episodic/Chronic Cancer of bladder (15 sources) Malignant tumor of urinary bladder; Translations: [Malignant neoplasm of bladder, unspecified] Onset: 03-16-2019 Chronic Past or Other Problems Problem Classification Problem Date Documented Da te Episodic/Chronic Fracture of upper limb (4 sources) Fracture of radial head; Translations: [Displaced fracture of head of unspecified radius, initial encounter for closed fracture] Onset: 02-26-2012 02-26-2012 Episodic Other diseases of kidney and ureters (1 source) Cyst of kidney, acquired; Translations: [Acquired cyst of kidney] Onset: 05-28-2023 Episodic Results Test Name Value Interpretation Reference Range Facil ity Vital Signs Date Time Vital Sign Value Performing Clinician Sommer shay 08-17-2022 08:34-0500 Body height 175.3 cm Juliocesar Campoverde DO Work Phone: [facility] 08-17-2022 08:34-0500 Body weight 92.08 kg Juliocesar Campoverde DO Work Phone: [facility] 08-17-2022 08:34-0500 Diastolic blood pressure 89 mm[Hg] Juliocesar Campoverde DO Work Phone: [facility] 08-17-2022 08:34-0500 Heart rate 89 /min Juliocesar Campoverde DO Work Phone: [facility] 08-17-2022 08:34-0500 Respiratory rate 18 /min Juliocesar Campoverde DO Work Phone: [facility] 08-17-2022 08:34-0500 Systolic blood pressure 145 mm[Hg] Juliocesar Campoverde DO Work Phone: [facility] Encounters Encounter Date Encounter Type Care Provider Facility Start: 05-28-2023 End: 05-29-2023 ambulatory JOSH MCLEAN Facility:[facility] Start: 08-17-2022 End: 08-17-2022 Patient encounter procedure Juliocesar Campoverde DO Work Phone: Urology Procedures Date Procedure Procedure Detail Performing Clinician Start: 11-27-2018 Adult depression scr eening assessment Juliocesar Campoverde DO Work Phone: Start: 12-07-2017 Colonoscopy Floaurelio Acuñabrayden suarez DO Work Phone: Plan of Treatment Date Care Activity Detail Author Start: 08-15-2027 PROSTATE CANCER SCREENING DISCUSSION PROSTATE CANCER SCREENING DISCUSSION [facility] Start: 10-27-2022 LIPID SCREEN LIPID SCREEN [facility] Start: 08-02-2022 End: 10-02-2022 CREATININE BLD CREATININE BLD Lab Routine Malignant neoplasm of urinary bladder, unspecified site (HCC) Expected: 08/02/2022, Expires: 10/02/2022 [facility] Work Phone: Immunizations Immunization Date Immunization Notes Care Provider Afsaneh woody 01-14-2021 COVID-19 vaccine, ag e 12+ yr (PFIZER-BIONTECH - PURPLE TOP) Juliocesar Campoverde DO Work Phone: [facility] 12-11-2020 COVID-19 vaccine, ag e 12+ yr (PFIZER-BIONTECH - PURPLE TOP) Juliocesar Campoverde DO Work Phone: [facility] Payers Date Payer Category Payer Unknown [employer] PPO OOS [id number] 2020-Present [phone] [id number] [place] [address] PPO [id number] 2020 Unknown [id number] Social History Date Type Detail Facility Start: 10-26-2017 End: 08-17-2022 Tobacco smoking status NHIS Never smoked tobacco [facility] History of tobacco use Cigar Smoker [facility] Start: 10-26-2017 End: 08-17-2022 Tobacco use and exposure Smokeless tobacco non-user [facility] Start: 06-23-2021 End: 08-17-2022 Alcohol intake Current drinker of alcohol (finding) [facility] Start: 10-26-2017 History SDOH Alcohol Comment OCC during the week [facility] Start: 1960 Sex Assigned At Not on file [facility] Medical Equipment Procedure Code Equipment Code Equipment Origin al Text Equipment Identifier Dates -02/22/1992 [id number] Start: 02-22-1992 Progress note 09-05-2023 Note Date & Type Note Facility 09-05-2023 Note HNO ID: [id number] Author: Hanny Palafox Service: ? Author Type: ? Type: Progress Notes Filed: 09/05/2023 1:51 PM Note Text: [facility] Nurse Note 08-17-2022 Ben Guerrier Ma - 08/17/2022 12:23 PM EST Note Date & Type Note Facility 08-17-2022 Nurse Note AMBULATORY CYSTOSCOPY PROCEDURE PREOPERATIVE/PROCEDURAL VERIFICATION: Patient verified by: Name and Date of UNIVERSAL PROTOCOL / SAFETY CHECKLIST Procedure to be Performed: Cystoscopy Sign In: A Moment of CARE was completed. Personnel directly involved with the procedure wore the appropriate PPE (Personal Protective Equipment). No special equipment needed. Patient/Surrogate Stated/Verified: PATIENT VERIFIED(optional for EMERGENT procedures): Patient name, Date of , Relevant allergies, and The intended procedure Time Out Communication: Intended patient and procedure match the source documents. Consent documented and matches the intended procedure. No relevant labs, photos, and/or imaging studies were applicable for review. No correct side/site applicable for marking and visibility. Medications required for procedure verified. No fire risk assessment and interventions applicable. No implant(s) inserted. Sign Out: SIGN OUT (optional for EMERGENT procedures): All specimen containers correctly labeled. Ben Guerrier Ma Medications and allergies reviewed and updated. Latex Allergy:No Pre-Procedure Antibiotics: Keflex 500 mg orally given during visit @ 08:40 am , by Ben Guerrier Ma Pre-Procedure Vital Signs: BP Blood pressure 145/89, pulse 89, resp. rate 18, height 175.3 cm (5' 9 ), weight 92.1 kg (203 lb). Current pain intensity is 0 on a scale of 0-10. Patient Prepped with Betadine Scrub to perineum and placement of sterile drape. Anesthetic Given: 10cc 2% Lidocaine Jelly into Urethra. Instruction sheet given and reviewed: Yes Patient verbalizes understanding: Yes Post- procedure Vital Signs: none Pain Ratin on a scale of 0 to 10. Specimens: obtained: Urine cytology Nurse: Ben Guerrier Ma documented in this encounter [facility] Procedure note 08-17-2022 Juliocesar Campoverde DO - 08/17/2022 9:41 AM EST Note Date & Type Note Facility 08-17-2022 Procedure note Procedure(s): CYSTOSCOPY Pre-Procedure Diagnose(s): Malignant neoplasm of urinary bladder, unspecified site (HCC) Post-Procedure Diagnose(s): Malignant neoplasm of urinary bladder, unspecified site (HCC) CYSTOSCOPY PROCEDURE NOTE: Keven Can is a 61 year old male who presents with follow up bladder tumor for cystoscopy. Pt ID verified with patient: Yes Procedure verified with patient: Yes Procedure confirmed with physician and it technical support specialist: Yes Sign In History and Physical Exam reviewed and is unchanged. . Informed Consent Discussed: Yes. Risks, benefits, alternatives and personnel discussed with patient who consents to proceed. Sign in Communication: Completed Time Out: Team Confirms the Correct Patient, Correct Procedure; Cystoscopy, Correct Site and Site Marking, Correct Position (if applicable). Affirmation of Time Out: Yes Sign Out: Sign Out Discussion: Completed Physician: Juliocesar Campoverde DO A urinalysis was performed revealing no evidence of infection. The benefits, risks, alternatives of the cystoscopy procedure and personnel were discussed with the patient. The verbal consent was obtained and the patient agrees to proceed. Procedure: The patient was placed on the procedure table in the supine position and prepped and draped in the usual sterile fashion. 2% Lidocaine Jelly was placed per urethra as an anesthetic in the standard fashion. Once adequate local anesthesia was achieved, the tip of the flexible cystoscope was carefully placed into the urethra under direct visual guidance. The scope was negotiated through the pendulous urethra to the level of the bulbar urethra with no evidence of stricture. The verumontanum came into view and the scope was negotiated through the prostatic urethra which showed evidence of bi lobar occlusive disease. The bladder was entered and careful rothman endoscopy was carried out. The posterior, superior and lateral daniels and dome of the bladder were all well visualized and the scope was retroflexed upon itself. The findings were consistent with no evidence of bladder mucosal pathology. Previous partial cystectomy site negative for malignancy. At the conclusion of the procedure, the flexible cystoscope was removed atraumatically. The patient tolerated the procedure without complications. Patient was given standard post-procedure instructions, and was directed to complete the course of oral antibiotics and increase oral fluid intake as directed. ASSESSMENT/PLAN: High-grade muscle invasive bladder cancer. TURBT: 02/21/19. 2 cm solitary lesion located at the dome of the bladder. He completed 4 rounds of neoadjuvant chemotherapy. S/P robotic partial cystectomy on 06/23/19 No residual cancer and negative margins Cysto today negative Send urine cytology. CT urogram 01/[address] 06/[address] Urogram 08/2022 negative. Cysto in 9-[address] urogram. Flomax for LUTS. Juliocesar Campoverde DO documented in this encounter [facility] Note 08-02-2022 Telephone Encounter - Kusum Venegas Cma - 08/02/2022 12:53 PM EST Note Date & Type Note Facility 08-02-2022 Miscellaneous Notes Formattin g of this note might be different from the original. Patient called stated he needs a CT urogram and a PSA prior to appt.I have pended the orders Please sign orders. Kusum Venegas Cma documented in this encounter [facility] Note 05-16-2022 Telephone Encounter - Gigi Mac Ma - 05/16/2022 7:59 AM EDT Note Date & Type Note Facility 05-16-2022 Miscellaneous Notes Formattin g of this note is different from the original. Pharmacy called requesting the following refill. Requested Prescriptions Pending Prescriptions Disp Refills Tadalafil (CIALIS) 20 mg tab(s) 30 tablet 11 Sig: Take 1 tablet by mouth as needed for up to 12 doses. Take 1 tab 1 hr prior to sex Patient last appointment: Visit date not found Patient Phone numbers: [phone] (home) Request is for script(s) to be escript to pharmacy. Gigi Mac Ma documented in this encounter [facility] Evaluation note Note Date & Type Note Facility documented in this encounter [facility] Evaluation note Note Date & Type Note Facility documented in this encounter [facility] Evaluation note Note Date & Type Note Facility documented in this encounter [facility] Summary Purpose Family History No Family History Records FoundNo Family History Records FoundNo Family History Records FoundNo Family History Records Found Advance Directives No Advanced Directives Records FoundDocuments on File Type Date Recorded Patient Physical Laboratory Assistant Expl anation Advance Directive(s) 04/17/2019 3:43 PM ADV ANCE DIRECTIVE Documents on File Type Date Recorded Patient Physical Laboratory Assistant Expl anation Advance Directive(s) 04/17/2019 3:43 PM ADV ANCE DIRECTIVE Reason for Referral Specialty Diagnoses / Procedures Referred By Contac t Referred To Contact CT IMAGING Diagnoses Malignant neoplasm of urinary bladder, unspecified site (HCC) Procedures CT UROGRAM WO/W IVCON CT ABD & PELVIS W/O CONTRST 1+ BODY REGJuliocesar Wilson DO [address] [place] [address] Ct Imaging Referral ID Status Reason Start Date Expiration Date Visits Requested Visits Authorized [id number] Pending Review Auto-Generat ed Referral 2 09/01/2023 1 1 Referral ID Status Reason Start Date Expiration Date Visits Requested Visits Authorized [id number] Pending Review Auto-Generat ed Referral 08/17/2022 09/16/2023 1 1 Medications Administered Section Inactive Administered Medications - up to 3 most recent administrations Medication Order MAR Action Action Date Dose Rate Site cephALEXin 500 mg cap(s) (KEFLEX) 500 mg, ORAL, ONCE, 1 dose, On Billie 08/17/22 at 1000, Please document the antimicrobial indication: Empiric Given 08/17/2022 8:40 AM EST 500 mg Oral lidocaine 2 % topical gel (XYLOCAINE) URETHRAL, ONCE, 1 dose, On Billie 08/17/22 at 1000, FOR EXTERNAL USE ONLY APPLY TO: PENIS Given 08/17/2022 8:45 AM EST 11 mL Other Additional Source Comments (unrecognized sect ion and content) No Status Records FoundNo Status Records FoundNo Status Records FoundNo Status Records Found INFORMATION SOURCE (unrecogn ized section and content) DATE CREATED AUTHOR AUTHOR'S ORGANIZ ATION 06/25/2020 [facility] DATE CREATED AUTHOR AUTHOR'S ORGANIZ ATION 09/07/2023 [facility] DATE CREATED AUTHOR AUTHOR'S ORGANIZ ATION 09/07/2023 [facility] Source Comments (unrecognize d section and content) In the event this informatio n is protected by the Federal Confidentiality of Alcohol and Drug Abuse Patient Records regulations: The Federal rules restrict any use of the information to criminally investigate or prosecute any alcohol or drug abuse patient.[facility] the event this information is protected by the Federal Confidentiality of Alcohol and Drug Abuse Patient Records regulations: The Federal rules restrict any use of the information to criminally investigate or prosecute any alcohol or drug abuse patient.[facility] the event this information is protected by the Federal Confidentiality of Alcohol and Drug Abuse Patient Records regulations: The Federal rules restrict any use of the information to criminally investigate or prosecute any alcohol or drug abuse patient.[facility] the event this information is protected by the Federal Confidentiality of Alcohol and Drug Abuse Patient Records regulations: The Federal rules restrict any use of the information to criminally investigate or prosecute any alcohol or drug abuse patient.[facility] Reason for Visit (unrecogniz ed section and content) Reason Comments Opened In Error Reason Comments Orders Reason Comments Bladder Cancer Care Teams (unrecognized sec tion and content) Luggage Attendant Relationship Specialty Start Date End Date Adrian Valencia MD [address] [place], [place] [id number] PCP - General Family Medicine 11/23/17 Luggage Attendant Relationship Specialty Start Date End Date Adrian Valencia MD [address] [place] [address] PCP - General Family Medicine 11/23/17 Luggage Attendant Relationship Specialty Start Date End Date Josh Mclean MD [address] [facility] [address] [place] [address] PCP - General Family Medicine 08/17/22 FOR RECORDS PERTAINING TO PATIENTS WHO ARE OR HAVE BEEN ENROLLED IN A CHEMICAL DEPENDENCY/SUBSTANCEABUSE PROGRAM, SOME INFORMATION MAY BE OMITTED. This clinical summary was aggregated from multiple sources. Caution should be exercised in using it in the provision of clinical care. This summary normalizes information from multiple sources, and as a consequence, information in this document may materially change the coding, format and clinical context of patient data. In addition, data may be omitted in some cases. CLINICAL DECISIONS SHOULD BE BASED ON THE PRIMARY CLINICAL RECORDS. [facility]. provides no warranty or guarantee of the accuracy or completeness of information in this document.
[2023-10-05 10:47] LABS: ALB/GLOB Ratio 0.9 RATIO (0.9-2.4); AST(SGOT) 17 U/L (15-37); Alanine Aminotransfer ALT/SGPT 20 U/L (16-61); Albumin, Serum 3.6 g/dL (3.2-5.0); Alkaline Phosphatase 69 U/L (45-117); Anion Gap 5 (5-15); BUN 23 mg/dL (7-18); BUN/Creat Ratio 18.5 RATIO (10-20); Chloride 110 mmol/L (98-107); Cholesterol 173 mg/dL (200); Creatinine, Serum 1.24 mg/dL (0.70-1.30); EST Glomerular Filtration Rate 63 mL/min (>60); Est Glom Filt Rate - Afr Amer 76 mL/min (>60); Globulin 3.9 g/dL (2.2-4.2); Glucose 106 mg/dL (74-106); High Density Lipoprotein 64 mg/dL; PSA,Total - Annual Screen 2.85 ng/mL (0.00-4.00); Potassium 4.5 mmol/L (3.5-5.1); Protein, Total 7.5 g/dL (6.4-8.2); Sodium Level 139 mmol/L (136-145); Thyroid Stim Hormone (TSH) 1.02 uIU/mL (0.358-3.74); Triglycerides 69 mg/dL; Very Low Density Lipoprotein 14 mg/dL (5-40)
== END | disposition home or self-care (01) ==
LOC: MFPLAB 09:03
PROVIDERS: PCP Family Medicine; Visit Provider Family Medicine
DX: Z00.00 Encounter for general adult medical examination without abnormal findings (principal)
CPT/HCPCS: 36415; 80053; 80061; 84153; 84403; 84443; G0103

== ENCOUNTER → 2024-10-17 | Outpatient (CLI) | payer BC, SELFPAY ==
[2024-10-17 12:34] LABS: Absolute Lymphocyte Count 1.24 X10^3/uL (0.83-4.51); Absolute Neutrophil Count 2.8 X10^3/uL (2.0-7.7); Basophil# 0.02 X10^3/uL; Basophil% 0.4 % (0-1); Eosinophil# 0.29 X10^3/uL; Eosinophils% 5.9 % (0-5); Hematocrit 44.6 % (40-54); Hemoglobin 15.2 g/dL (13.0-16.5); Lymphocyte # 1.24 X10^3/ul (0.83-4.51); Lymphocyte % 25.4 % (19-41); Mean Corp Hgb Conc 34.1 g/dL (32-36); Mean Corpuscular Hgb 32.1 pg (27.0-32.0); Mean Corpuscular Volume 94.3 fL (80-94); Monocyte# 0.56 X10^3/uL; Monocyte% 11.5 % (0-10); NRBC Flagged by Analyzer 0 % (0-5); Neutrophil # 2.77 X10^3/uL (2.7-7.7); Neutrophil % 56.6 % (47-70); Platelet Count 184 K/mm3 (150-450); RBC Distribution Width CV 12.5 % (11.6-14.6); Red Blood Count 4.73 M/mm3 (4.6-6.2); White Blood Count 4.9 K/mm3 (4.4-11.0)
[2024-10-17 13:11] LABS: AST(SGOT) 26 U/L (15-37); Alanine Aminotransfer ALT/SGPT 35 U/L (16-61); Albumin, Serum 3.9 g/dL (3.2-5.0); Alkaline Phosphatase 71 U/L (45-117); Anion Gap 8 (5-15); BUN 15 mg/dL (7-18); Calcium,Total 8.9 mg/dL (8.5-10.1); Chloride 105 mmol/L (98-107); Cholesterol 167 mg/dL (200); Creatinine, Serum 1.25 mg/dL (0.70-1.30); EST Glomerular Filtration Rate 62 mL/min (>60); Est Glom Filt Rate - Afr Amer 75 mL/min (>60); Globulin 3.8 g/dL (2.2-4.2); Glucose 99 mg/dL (74-106); High Density Lipoprotein 68 mg/dL; PSA,Total - Annual Screen 2.81 ng/mL (0.00-4.00); Potassium 4.5 mmol/L (3.5-5.1); Protein, Total 7.7 g/dL (6.4-8.2); Sodium Level 138 mmol/L (136-145); Triglycerides 74 mg/dL; Very Low Density Lipoprotein 15 mg/dL (5-40)
== END | disposition home or self-care (01) ==
LOC: BFHLAB 09:28
PROVIDERS: PCP Nurse Practitioner Family; Visit Provider Nurse Practitioner Family
DX: Z00.01 Encounter for general adult medical examination with abnormal findings (principal); Z12.5 Encounter for screening for malignant neoplasm of prostate
CPT/HCPCS: 36415; 80053; 80061; 84153; 85025; G0103

== ENCOUNTER → 2025-06-08 | Outpatient (CLI) | payer BC, SELFPAY ==
--- NOTE | 2025-06-08 | FLU_PTH ---
PATIENT: RAMY REYNOSO LOC: [facility] U#:[id number] AGE/SX: 64/M ROOM: RE06/08/[address]: Dr. Fortino Patterson MD : 1960 BED: DIS: 06/08/2025 SPEC #: [id number] RECD: 06/08/25 09:07 STATUS: LEVI RERoman #: [id number] JACK: 06/08/25 00:[address]: Fortino Patterson DEPT: CYTOLOGY RECD BY: Terrance Colvin ENTERED: 06/09/25 10:00 SP TYPE: Fluid OTHR DR: Nikki Ramos, OIL PRODUCER-C Tissues: A - Urine Procedures: Special Stain Group II Cytospin Fluid HEADER OPERATION: Not noted PRE-OP DIAGNOSIS: Benign prostatic hyperplasia with lower urinary tract symptoms TISSUE SUBMITTED: A- Urine for cytology - voided DIAGNOSIS CYTOLOGY A. Urine, voided (cytospin): * No malignant cells identified. * Histiocytes and acute inflammation noted. CYTOLOGY STUDY Slides are reviewed. CYTOLOGY GROSS A. Received is 70 ml of [id number] fluid labeled with the patient's name and and designated per the requisition as urine. Submitted for cytology preparation. Mr 06/09/2025 CPT: 07436
--- NOTE | 2025-06-08 | FLU_PTH ---
PATIENT: RAMY REYNOSO LOC: [facility] U#:[id number] AGE/SX: 64/M ROOM: RE06/08/[address]: Dr. Fortino Patterson MD : 1960 BED: DIS: 06/08/2025 SPEC #: [id number] RECD: 06/08/25 09:07 STATUS: LEVI RERoman #: [id number] JACK: 06/08/25 00:[address]: Fortino Patterson DEPT: CYTOLOGY RECD BY: Terrance Colvin ENTERED: 06/09/25 10:00 SP TYPE: Fluid OTHR DR: Nikki Ramos, NUCLEAR ENGINEERING TECHNICIAN-C Tissues: A - Urine Procedures: Special Stain Group II Cytospin Fluid HEADER OPERATION: Not noted PRE-OP DIAGNOSIS: Benign prostatic hyperplasia with lower urinary tract symptoms TISSUE SUBMITTED: A- Urine for cytology - voided DIAGNOSIS CYTOLOGY A. Urine, voided (cytospin): * No malignant cells identified. * Histiocytes and acute inflammation noted. CYTOLOGY STUDY Slides are reviewed. CYTOLOGY GROSS A. Received is 70 ml of [id number]-[id number] fluid labeled with the patient's name and and designated per the requisition as urine. Submitted for cytology preparation. Mr 06/09/2025 CPT: 81034
[2025-06-08 11:41] LABS: PSA,Total- Diagnostic 2.67 ng/mL (0.00-4.00)
[2025-06-08 19:28] LABS: Cytology, Body Fluid / CSF SEE PATHOLOGY REPORT
== END | disposition home or self-care (01) ==
PROVIDERS: PCP Nurse Practitioner Family; Referring Provider Urology; Visit Provider Urology
DX: N40.1 Benign prostatic hyperplasia with lower urinary tract symptoms (principal)
CPT/HCPCS: 36415; 84153; 88108; 88305; 88313